=== PATIENT | female | born 1960 | race Caucasian/White ===

== ENCOUNTER 2024-09-04 10:49 | Emergency (ER) | payer BC, SELFPAY ==
--- OUTSIDE RECORDS SUMMARY | 2024-09-04 10:51 | XMS_ITS | Clinical Summary ---
Author Organization [email or web address] [facility] [employer] [facility] Address [place], [place] [address] Care Team Providers Care Set Up Operator Name Role Phone Héctor Mason MD Unavailable [phone] Hailey Mallory DO Primary Care Provider [phone] Allergies No known active allergies Medications cholecalciferol (VITAMIN D-3) 2,000 unit capsule Take 2 capsules by mouth once daily. 0 06/24/20 14 Active aspirin chewable 81 mg chewable tablet Take 1 tablet by mouth once daily with a meal. 0 04/26/20 20 Active albuterol HFA (PRO-AIR; VENTOLIN; PROVENTIL) 90 mcg/actuation inhalerIndicatio ns:Mild intermittent asthma without complication INHALE 1-2 PUFFS BY MOUTH EVERY 4 HOURS IF NEEDED. 18 Each 3 05/18/20 22 Active fexofenadine HCl (JORDAN ORAL) Take by mouth. Active fluticasone propion-salmeter oL (ADVAIR) 100-50 mcg/dose diskus inhalerIndicatio ns:Mild intermittent asthma without complication Inhale 1 Puff by mouth two times daily. 60 Each 3 12/05/19 24 Active sertraline (ZOLOFT) 100 mg tabletIndication s:Depression, recurrent (HC) Take 1 Tablet (100 mg) by mouth once daily. 90 Tablet 3 12/10/19 24 Active SUMAtriptan (IMITREX) 50 mg tabletIndication s:Migraine without status migrainosus, not intractable, unspecified migraine type GIVE AT MINIMUM 2 HOURS APART. MAXIMUM DOSE: 200 MGPER 24 HOURS 27 Tablet 3 12/10/19 24 Active estradioL (ESTRACE) 0.01% (0.1 mg/g) vaginal creamIndications :Atrophic vaginitis 2 GRAMS DAILY X 1-2 WKS, 1 GRAM EVERY OTHER DAY X 2 WKS, THEN MAINTENANCE DOSE OF 1/2-1 GRAM 2 X WK 42.5 g 3 04/13/20 24 Active ECHINACEA ORAL Take by mouth. Active medication order composer Sid Vitamin B Stress Active medication order composer Irene Three Way capsule A ctive HAIR, SKIN AND NAILS, BIOTIN, ORAL Take by mouth. Activ e abatacept (Orencia ClickJect) subcutaneous autoinjector penIndications:R heumatoid arthritis involving multiple sites, unspecified whether rheumatoid factor present (HC) INJECT ONE CLICKJECT PEN SUBCUTANEOUSLY EVERY WEEK. REFRIGERATE. ALLOW TO WARM TO ROOM TEMPERATURE PRIOR TO ADMINISTRATION. 12 Each 1 05/16/20 24 Active folic acid 1 mg tabletIndication s:High risk medication use,Rheumatoid arthritis involving multiple sites, unspecified whether rheumatoid factor present (HC) Take 1 Tablet (1 mg) by mouth once daily. 90 Tablet 1 05/16/20 24 Active methotrexate (RHEUMATREX) 2.5 mg tabletIndication s:Rheumatoid arthritis involving multiple sites, unspecified whether rheumatoid factor present (HC) TAKE 4 TABLETS ONCE WEEKLY 48 Tablet 1 05/16/20 24 Active doxycycline 100 mg tabletIndication s:Sinusitis, unspecified chronicity, unspecified location Take 1 Tablet (100 mg) by mouth two times daily for 5 days. 10 Tablet 08/06/20 24 024 Active Problems Problem Noted Date Diagnosed Date Colon polyp 07/29/2021 Overview (07/29/2021): Colonoscopy 07/2021 2-TA, repeat in 7 years S/P ascending aortic aneurysm repair 04/21/2020 Overview (04/28/2020): CT [id number] and then annually Obstructive sleep apnea 04/15/2020 Thyroid nodule 10/22/2018 Overview (12/25/2023): FNA 09/2018 = Benign colloid nodule with cystic degeneration, no malignancy. Potential for malignancy 0-3%. Repeat FNA is increasing. Repeat US 1 year. 09/2019: stable nodule, repeat 1 year x 5 years per radiology 11/2021 nodule stable, repeat in 1 year 11/2022 stable US, plan repeat in 1 year 11/2023 stable, repeat 1 year Mixed incontinence urge and stress 08/13/2018 Cervical high risk HPV (human papillomavirus) te st positive 07/12/2016 Overview (10/25/2020): 07/12/2016 NIL/HPV+, HPV16/18 Negative 07/2017 NIL/HPV Negative 09/2020 NIL/HPV negative Plan: Routine screening Rheumatoid arthritis involvi ng multiple sites with positive rheumatoid factor 07/07/2015 RA (rheumatoid arthritis) 09/09/2014 Plantar fasciitis 05/20/2014 Asthma, mild intermittent 01/27/2014 Overview (01/27/2014): PFTs showing moderate obstruction 01/26/14 with good response to bronchodilator Deltoid bursitis 02/14/2013 Prolonged depressive reaction 03/07/2011 Vitamin D deficiency 09/08/2009 Resolved Problems Problem Noted Date Diagnosed Date Resolved Date 23-polyvalent pneumococcal p olysaccharide vaccine indication of age greater than 64 years old 07/29/2021 04/14/2022 Rectal bleeding 05/16/2011 07/07/2015 Overview (05/16/2011): Colonoscopy 04/2011 normal repeat in 10 years Unspecified hypothyroidism 09/08/2009 1 09/06/2014 Dysthymic disorder 12/22/2008 5 MAJOR DEPRESSION, RECURR, MODERATE 07/30/2007 07/07/2015 Encounters Date Type Department Care Team Description 08/29/2024 9:30 AM CYLINDER BATCHER Orders Only [facility] [address] [address] Lab, [place] [facility] 08/29/2024 Travel 08/06/2024 9:15 AM CYLINDER BATCHER Office Visit [facility] [address] [place] [address] Kenna Calixto MD Sinus Problem; Cough (coughing up phlegm) 08/06/2024 Travel from Last 3 Months Immunizations Name Administration Dates Next Due AMB INFLUENZA, IIV4 (AGE=>6M OS) MDV (Flu Clinic Only) 08/29/2019 COVID-19 vaccine (Datahero-Bio NTech 30mcg/0.3mL) 12YO+ JENNIFER-SUCROSE PF, MDV 04/14/2022 COVID-19 vaccine (Datahero-Bio NTech 30mcg/0.3mL) PF, MDV 08/12/2021,02/01/2021,01/11/2021 Influenza, IIV4 05/09/2021 Influenza,CCIIV4 PRESERV FREE 06/12/2020, 020 Td (Age >=7 Years) 05/25/2004 Td, Preservative Free (age >= 7 Years) 3 Tdap 12/16/2012 Zoster (Shingrix-RZV, recombinant) 08/29/2019, Family History Medical History Relation Name Comments Good Health Brother Arthritis Father rheumatoid Cancer-breast Mother Good Health Mother Diabetes Son Cancer-ovarian No Family History Relation Name Status Comments Brother Father Maternal Grandfather lung ca Maternal Grandmother (Age 79) ? pancreatic cancer Mother Paternal Grandfather cirrhos is Paternal Grandmother unknown , Son type 1 Social History Tobacco Use Types Packs/Day Years Used Date Smoking Tobacco: Never Passive Smoke Exposure: Past Smokeless Tobacco: Never Tobacco Cessation:Counseling Given: Not Answered Alcohol Use Standard Drinks/Week Comments Yes 0 (1 standard drink = 0.6 oz pur e alcohol) occassionally [facility] Utilities Answer Date Recorded Do you have trouble paying f or utilities (for example, heat, electricity, water, phone)? Yes 12/10/2023 PHQ-2 Answer Date Recorded PHQ-2 TOTAL SCORE 2 12/10/2023 Social Connections Answer Date Recorded Do you often feel lonely or isolated from those around you? 0 12/10/2023 Alcohol Use Answer Date Recorded How often do you have a drink containing alcohol ? 1 12/10/2023 How many drinks containing a lcohol do you have on a typical day when you are drinking? 0 12/10/2023 How often do you have five or more drinks on one occasion? 0 12/10/2023 Financial Resource Strain Answer Date R ecorded Difficulty of Paying Living Expenses 3 12/10/2023 Difficulty of Paying Living Expenses Not on file 12/10/2023 Food Insecurity Answer Date Recorded Do you worry your food will run out before you are able to buy more? 1 12/10/2023 Transportation Needs Answer Date Record ed Does lack of transportation keep you from medica l appointments? 1 12/10/2023 Does lack of transportation keep you from work, meetings or getting things that you need? 1 12/10/2023 Housing Stability Answer Date Recorded What is your housing situation today? 1 12/10/2023 Comments No Sex and Gender Information Value Date Recorded Sex Assigned at Not on file Legal Sex Female 6:20 AM CYLINDER BATCHER Gender Identity Not on file Sexual Orientation Not on file Occupation Industry Job Start Date Job End Date [employer] Not on file Not on file Not on file Not on file Not on file Not on file Not on file Obstetrics History Para Term AB IAB SAB Ectopic Multiple Livin g Live Births 2 2 2 0 0 0 0 0 0 2 2 Date Outcome GA Total Labor Labor/2nd/3rd Weight Sex Type Anes PTL Yane A1 A5 Name Clin Term Vag Living Term Vag Living Last Filed Vital Signs Vital Sign Reading Time Taken Comments Blood Pressure 132/76 08/06/2024 9:24 AM CYLINDER BATCHER Pulse 78 08/06/2024 9:24 AM CYLINDER BATCHER Temperature 36.7 C (98.1 F) 10/19/2023 8:15 AM CYLINDER BATCHER Respiratory Rate 16 05/16/2024 12:31 PM CDT Oxygen Saturation 95% 08/06/2024 9:24 AM CYLINDER BATCHER Inhaled Oxygen Concentration - - Weight 95.7 kg (211 lb) 08/06/2024 9:24 AM CYLINDER BATCHER Height 154.9 cm (5' 1) 12/10/2023 2:37 PM CDT Body Mass Index 39.87 12/10/2023 2:37 PM CDT Plan of Treatment Upcoming Encounters Date Type Department Care Team (Late st Contact Info) Description 01/13/2025 11:00 AM CDT Office Visit [facility] [address] [place] [address] Héctor Mason MD [address] [place] [address] Health Maintenance Due Date Last Done Comments Pneumococcal series for age 50+ (1 of 1 - PCV) 2012 RSV vaccine for adults or (1 - Risk 60-74 years 1-dose series) 2022 COVID-19 vaccine series ( season) 2024 04/14/2022, 08/12/2021, 02/01/2021, Additional history exists Influenza for age 50-64 04/27/2024 05/09/20 21, 06/12/2020, 08/29/2019, Additional history exists BMI (ht and wt on same day) for age 18+ 12/09/2024 12/10/2023, 10/19/2023, 12/05/2022, Additional history exists Depression screening for age 12+ 12/09/2024 12/10/2023, 12/05/2022, 08/29/2022, Additional history exists Mammogram for age 45-75 12/09/2024 12/10/19 24, 12/05/2022, 10/24/2021, Additional history exists Pap test for age 21-65 09/27/2025 , 09/27/2020, 08/08/2017, Additional history exists Colonoscopy through age 75 07/26/202807/26, 07/26/2021, 07/26/2021, Additional history exists Lipids for age 45-75 01/09/2029 01/10/2024, 12/26/2022, 09/27/2020, Additional history exists Tetanus booster 12/05/2032 12/05/2022, 11/26, 05/25/2004 Tdap Completed 12/16/2012 Hepatitis C screening for ag e 18-79 Completed 07/01/2014 Zoster (shingles) series for age 50+ Completed 08/29/2019, 06/26/2019 HIV for age 15-65 Completed 03/01/2023 Medical Devices Implanted Type Area Membership Secretary Device Identifier Shelf Expiration Date Model / Serial / Lot Graft Vasc [id number] Vascutek Gelweave [facility] - [id number] Implanted:Qty: 1 on 04/21/2020 by Marko Cornell MD at [facility] N/A: Aorta Touchbase 08/26/2022 [id number] / [id number] / [id number] Description:Ascending aorta graft. Vascutek Terumo Gelweave Straight Graft. Size: 28 mm x 30 cm. Ref: [id number]. Lot: [id number]. SN: [id number]. Use by date: 08-26-2022. Implanted by Dr. Marko Cornell on 04-21-2020. Tissue Pericardium 6x8cm Photofix Bovine - [id number] Implanted:Qty: 1 on 04/21/2020 by Marko Cornell MD at [facility] N/A: Aorta [employer] 2021 PFP [id number] / / [id number] Procedures Procedure Name Priority Date/Time Associated Diagnosis Comments CBC W PLT NO DIFF Routine 08/29/2024 9:4 3 AM CYLINDER BATCHER High risk medication use COMP METABOLIC PANEL Routine 08/29/2024 9:43 AM CYLINDER BATCHER High risk medication use LIPID PANEL W REFLEX MEASURED LDL Routine 01/10/2024 1:40 PM CDT Lipid screening XR MAMMO DAVID BILAT SCREEN Routine 12/10/2023 11:49 AM CDT Visit for screening mammogram LC HIV-1/O/2, 4TH GENERATION Routine 03/01/2023 8:47 AM CDT Screening for HIV (human immunodeficiency virus) COLONOSCOPY SCREENING Routine 07/26/2021 8:48 AM CYLINDER BATCHER Screening for colon cancer SCRATCH FINISHER THIN PREP PAP SCREEN IMAGED Routine 09/27/2020 1:55 PM CYLINDER BATCHER Pap smear for cervical cancer screening ACUTE HEPATITIS PANEL Routine 07/01/2014 9:58 AM CYLINDER BATCHER Elevated liver enzymes from Last 3 Months or Most Recently Relevant to Health Maintenance Results * CBC W PLT NO DIFF (08/29/2024 9:43 AM CYLINDER BATCHER) Pathologist [facility] WHITE BLOOD CELL COUNT 6.8 3.8 - 10.8 Thousand/u L [facility] RED BLOOD CELL COUNT 4.21 3.80 - 5.10 Million/uL [facility] HEMOGLOBIN 12.7 11.7 - 15.5 g/dL [facility] HEMATOCRIT 39.0 35.0 - 45.0 % [facility] MCV 92.6 80.0 - 100.0 fL [facility] MCH 30.2 27.0 - 33.0 pg [facility] MCHC 32.6 32.0 - 36.0 g/dL [facility] Comment: For adults, a slight decrease in the calculated MCHC value (in the range of 30 to 32 g/dL) is most likely not clinically significant; however, it should be interpreted with caution in correlation with other red cell parameters and the patient's clinical condition. RDW 13.5 11.0 - 15.0 % [facility] PLATELET COUNT 320 140 - 400 Thousand/u L [facility] MPV 9.2 7.5 - 12.5 fL [facility] Blood BLOOD SPECIMEN / Unknown 08/29/2024 9:43 AM CYLINDER BATCHER 08/29/2024 9:43 AM CYLINDER BATCHER us Héctor Mason MD HEMATOLOGY Final Resul t [facility] [address] [place] [address], [facility] [address] [place] [address] * COMP METABOLIC PANEL (08/29/2024 9:43 AM CYLINDER BATCHER) [facility] GLUCOSE 92 65 - 99 mg/dL [facility] Comment: Fasting reference interval UREA NITROGEN (BUN) 12 7 - 25 mg/dL [facility] CREATININE 0.80 0.50 - 1.05 mg/dL [facility] EGFR 84 > OR = 60 mL/min/1. 73m2 [facility] BUN/CREATININE RATIO SEE NOTE: 6 - 22 (calc) [facility] Comment: Not Reported: BUN and Creatinine are within reference range. SODIUM 142 135 - 146 mmol/L [facility] POTASSIUM 4.5 3.5 - 5.3 mmol/L [facility] CHLORIDE 108 98 - 110 mmol/L [facility] CARBON DIOXIDE 27 20 - 32 mmol/L [facility] CALCIUM 9.4 8.6 - 10.4 mg/dL [facility] PROTEIN, TOTAL 6.5 6.1 - 8.1 g/dL [facility] ALBUMIN 4.2 3.6 - 5.1 g/dL [facility] GLOBULIN 2.3 1.9 - 3.7 g/dL (calc) [facility] ALBUMIN/GLOBULIN RATIO 1.8 1.0 - 2.5 (calc) [facility] BILIRUBIN, TOTAL 0.5 0.2 - 1.2 mg/dL [facility] ALKALINE PHOSPHATASE 81 37 - 153 U/L [facility] AST 21 10 - 35 U/L [facility] ALT 25 6 - 29 U/L [facility] Blood BLOOD SPECIMEN / Unknown 08/29/2024 9:43 AM CYLINDER BATCHER 08/29/2024 9:43 AM CYLINDER BATCHER us Héctor Mason MD CHEMISTRY Final Resul t [employer] [facility] [address] [place] [address], [place] [phone] [facility] [address] [place] [address] * (ABNORMAL) LIPID PANEL W REFLEX MEASURED LDL (01/10/2024 1:40 PM CDT) CHOLESTEROL,TOTAL 214(H) 100 - 199 mg/dL 01/10/2024 3:[address] [facility] Comment: Cholesterol, Total Reference Ranges Desirable <200 mg/dL Borderline 200-239 mg/dL High >=240 mg/dL TRIGLYCERIDES 138 <150 mg/dL 01/10/2024 3:[address] [facility] HDL CHOLESTEROL 64 >40 mg/dL 3:[address] [facility] NON-HDL CHOLESTEROL 150(H) <145 mg/dl 01/10/2024 3:[address] [facility] CHOL/HDL RATIO 3.34 <4.50 01/10/2024 3:[address] [facility] LDL CHOLESTEROL 122 <=130 mg/dL 01/10/2024 3:[address] [facility] VLDL CHOLESTEROL 28 <=30 mg/dL 01/10/2024 3:[address] [facility] PROVIDER ORDERED STATUS RANDOM 01/10/2024 3:[address] [facility] Blood BLOOD SPECIMEN / Unknown Venipuncture / Unknown 01/10/2024 1:40 PM CDT 01/10/2024 1:42 PM CDT us Hailey Mallory DO CHEMISTRY Final Resu lt [facility] SENDOUT INTERNAL ZIP [id number] [place], [place] [id number] * XR MAMMO DAVID BILAT SCREEN (12/10/2023 11:49 AM CDT) Anatomical Region Laterality Modality BREASTS, Breast Left, Breast Right Bilateral Mammography Impressions 12/10/2023 1:55 PM CDT There is no radiographic evidence for malignancy. Recommend annual mammograms. MAMMOGRAM ASSESSMENT: ACR 1 Negative PATIENTS: You will also receive a letter with your examination results in an easy to read format. If you have questions about your results, please contact your referring provider. Narrative 12/10/2023 1:55 PM CDT For Patients: As a result of the 21st Century Cures Act, medical imaging exams and procedure reports are released immediately into your electronic medical record. You may view this report before your referring provider. If you have questions, please contact your health care provider. XR MAMMO DAVID BILAT SCREEN [[id number]] CLINICAL HISTORY: This is an asymptomatic 62 y.o. patient. INDICATION FOR EXAM: Mammogram Screening. TECHNIQUE: CC & MLO views were obtained. This study was evaluated with the assistance of Computer-Aided Detection. Breast Tomosynthesis was used in interpretation. COMPARISON FILM: Yes 12/05/22 [facility] 10/24/21 [facility] FINDINGS: The breasts have scattered areas of fibroglandular density. There are no dominant masses, suspicious micro calcifications or areas of architectural distortion. us Hailey Mallory DO MAMMO Final Resu lt * LC HIV-1/O/2, 4TH GENERATION (03/01/2023 8:47 AM CDT) HIV Scr 4th Gen Non Reactive Non Reactive 03/04/2023 12:07 PM CDT [facility] Comment: HIV Negative HIV-1/HIV-2 antibodies and HIV-1 p24 antigen were NOT detected. There is no laboratory evidence of HIV infection. Blood BLOOD SPECIMEN / Unknown Venipuncture / Unknown 03/01/2023 8:47 AM CDT 03/01/2023 8:48 AM CDT Narrative [facility] - 03/04/2023 12:07 PM CDT Performed at: [address] [place] [id number] Wrap Checker: Zia Mathur MD, Phone: [phone] us Héctor Mason MD LABORATORY Final Resul t [facility] [place] [address], * COLONOSCOPY (07/26/2021 7:55 AM CYLINDER BATCHER) 07/26/2021 7:55 AM CYLINDER BATCHER Narrative Transcriptions Mark Anthony Nguyen MD - 07/26/2021 9:47 AM CST Patient Name: Buffy Cortez Procedure Date: 07/26/2021 Gender: Female Date of : 1960 Admit Type: Outpatient Procedure: Colonoscopy Proceduralist: Mark Anthony Nguyen MD , Val Hernandez RN(Nurse) Referring MD: Hailey Mallory Indications/Pre-Op Diagnosis: Screening for colorectal malignant neoplasm, Last colonoscopy: April 2011 Medications: Fentanyl 100 micrograms IV, Midazolam 2 mgIV, The level of sedation administered wasmoderate Procedure Description: The patient had risks, benefits and alternatives explained to andgave informed consent. The patient had a stable cardiopulmonary status and judged an adequate candidate for conscious sedation. The [id number] was passed through the anus and advanced tothe cecum, identified by appendiceal orifice and ileocecal valve. The colonoscopy was performed without difficulty. The patient toleratedthe procedure well. The quality of the bowel preparation was good. The ileocecal valve, appendiceal orifice, and rectum were photographed. Complications: No immediate complications. Estimated Blood Loss & Specimen: Estimated blood loss: none. Specimen collected - Yes and sent to Laboratory Findings: The perianal and digital rectal examinations were normal. Two semi-pedunculated polyps were found in the rectum. The polypswere 4 to 5 mm in size. These polyps were removed with a hot snare.Resection and retrieval were complete. The exam was otherwise without abnormality. Impressions/Post-Op Diagnosis: - Two 4 to 5 mm polyps in the rectum, removed with a hot snare.Resected and retrieved. - The examination was otherwise normal. Recommendation: - Patient has a contact number available for emergencies. The signsand symptoms of potential delayed complications were discussed with the patient. Return to normal activities tomorrow. Written discharge instructions were provided to the patient. - Resume previous diet. - Continue present medications. - Await pathology results. - Repeat colonoscopy is recommended. The colonoscopy date will be determined after pathology results from today's exam become available for review. Moderate Sedation: Moderate (conscious) sedation was administered by the endoscopy nurse and supervised by the endoscopist. The following parameters were monitored: oxygen saturation, heart rate, respiratory rate, blood pressure, adequacy of pulmonary ventilation and reponse to care. Please refer to the patient's medical record flowsheets and nursing notes for moderate sedation details. Total physician intraservice time was 16 minutes. Mark Anthony Nguyen MD 07/26/2021 9:47:26 AM This report has been signed electronically. Note Initiated On: 07/26/2021 7:55 AM Procedure Code(s): --- Professional --- 38197, Colonoscopy, flexible; with removalof tumor(s), polyp(s), or other lesion(s) bysnare technique Diagnosis Code(s): --- Professional --- Z12.11, Encounter for screening formalignant neoplasm of colon K62.1, Rectal polyp CPT copyright 2020 [employer]. All rights reserved. The codes documented in this report are preliminary and upon torch straightener reviewmay be revised to meet current compliance requirements. Scope In: 9:25:10 AM Scope Withdrawal Time 0 hours 9 minutes 20 seconds Scope Out: 9:40:09 AM us Mark Anthony Nguyen MD PROCEDURE ORD Final Res ult * SCRATCH FINISHER THIN PREP PAP SCREEN IMAGED (09/27/2020 1:55 PM CYLINDER BATCHER) Case Report Gynecologic Cytology Report Case: [id number] Authorizing Provider: Hailey Mallory DO Collected: 09/27/2020 1355 Ordering Location: [facility] Received: 09/27/2020 1421 Clinic First Screen: Radha Bryant Specimen: SCRATCH FINISHER ThinPrep Vial Screening, Cervical 10/05/2020 10:49 AM CYLINDER BATCHER [facility] ENTRAL LABORATORY INTERPRETATION/ RESULT NEGATIVE FOR INTRAEPITHELIAL LESION OR MALIGNANCY (NIL) (none) 10/05/2020 10:49 AM CYLINDER BATCHER [facility] ENTRAL LABORATORY IMEN ADEQUACY Satisfactory for evaluation Endocervical cells cannot be evaluated due to severe atrophy 10/05/2020 10:49 AM [facility]ER BATCHER [facility] HPV REQUEST HPV and PAP 10/05/2020 10:49 AM CYLINDER BATCHER [facility] Date of LMP n/a 10/05/2020 10:49 AM CYLINDER BATCHER [facility] Last Pap Date 08/08/17 10/05/2020 10:49 AM CYLINDER BATCHER [facility] Last Pap Result NIL 10:49 AM CYLINDER BATCHER [facility] Abnormal Pap or Hurst Bx in last 5 years No 10/05/2020 10:49 AM CYLINDER BATCHER [facility] ENTRAL LABORATORY Menstrual Status Postmenopausal 10/05/2020 10:49 AM CYLINDER BATCHER [facility] ENTRAL LABORATORY Hurst Bx Done Today No 10/05/2020 10:49 AM CYLINDER BATCHER [facility] ENTRAL LABORATORY Additional Information None given 10/05/2020 10:49 AM CYLINDER BATCHER [facility] ENTRAL LABORATORY Comment: Cytology is screened at [facility] - [address], [place] [address] and [facility] - [address], [place] [address] [facility] - [address] [place] [address] Interpreted at [facility] - [address], [place] [address] Automated Review Successful 10/05/2020 10:49 AM CYLINDER BATCHER [facility] ENTRAL LABORATORY Comment:Specimen processed s uccessfully by automated elevator mechanic device, [employer] System, [employer] ANCILLARY TESTING SCRATCH FINISHER HPV Ordered, Please see separate report 10/05/2020 10:49 AM CYLINDER BATCHER [facility] [place] [facility] Note The pap test is a screening technique, not a diagnostic procedure. It is used primarily to screen for squamous cancers and precursor lesions. Published studies have shown that it is subject to both false negative and false positive results. The pap test should not be used as the sole means to diagnose or exclude pre-malignant and malignant lesions. 10/05/2020 10:49 AM CYLINDER BATCHER [facility] EN[facility] Other (Cervical) Non-Blood / Unknown 09/27/2020 1:55 PM CYLINDER BATCHER 09/27/2020 2:21 PM CYLINDER BATCHER Hailey Mallory DO PATHOLOGY/CYTOLOGY Final R esult Performing Organization Address City/[facility]/ZIP Co de Phone Number [facility] [address] * ACUTE HEPATITIS PANEL (07/01/2014 9:58 AM CYLINDER BATCHER) HEPATITIS C ANTIBODY Non-Reactive Non-Reactive 07/01/2014 5:55 PM CYLINDER BATCHER [facility] IGM ANTI HAV Non-Reactive Non-Reactive 07/01/20 14 5:55 PM CYLINDER BATCHER [facility] HBSAG Nonreactive Nonreactive 07/01/2014 5:55 PM CYLINDER BATCHER [facility] IGM ANTI HBC Non-Reactive Non-Reactive 07/01/20 14 5:55 PM CYLINDER BATCHER [facility] Blood specimen (specimen) BLOOD SPECIMEN / Unknown Venipuncture / Unknown 07/01/2014 9:58 AM CYLINDER BATCHER 07/01/2014 9:58 AM CYLINDER BATCHER Narrative [facility] - 07/01/2014 5:55 PM CYLINDER BATCHER Anti-HBc IgM not detected. Does not exclude the possibility of exposure to or infection with HBV. Hailey Mallory DO SEND OUTS Final Resu lt Performing Organization Address City/[facility]/ZIP Co de Phone Number [facility] [address] [place] [address], from Last 3 Months or Most Recently Relevant to Health Maintenance Insurance [employer] [place] [address] [address] [place] Member Subscriber Plan / Payer (Ef fective 2020-Present) Name:Buffy Cortez Member ID:[id number] Relation to Subscriber:Employee Name:[employer] Subscriber ID:[id number] Date of :1998 (Home) Address: [address] [address] Payer ID:Not on file Group ID:Not on file Type:Not on file Address: [place] [id number] [id number] M[place]NA MIRNA DIANA Advance Directives * Full Code (Latest Code Status on File) Date Activated Date Inactivated Comments 04/21/2020 9:33 AM 04/25/2020 2:58 PM Question Answer Comments Code Status Discussion: Per Existing Order Care Teams Set Up Operator Relationship Specialty Start Date End Date [place] [address] [address] PCP - General Family Practice 07/12/16 Héctor Mason MD [address] [place] [address] Rheumatology Rheumatology 06/24/14
[2024-09-04 11:02] VITALS: BP 147/62; PULSE 77; RESP 20; TEMP 36.9; O2SAT 96; BMI 39.1
--- NOTE | 2024-09-04 11:14 | CRLHL7_ITS ---
For Patients: As a result of the Cures Act, medical imaging exams and procedure reports are released immediately into your electronic medical record. You may view this report before your referring provider. If you have questions, please contact your health care provider. INDICATION: Pain, fall from ladder COMPARISON: None. TECHNIQUE: Three views right elbow FINDINGS: Acute fracture of the right radial neck. Minimal articular surface disruption. The fracture is mildly impacted, about 15 degrees. There is also a nondisplaced coronoid process fracture. Normal joint alignment. Joint spaces are normal. No focal bone lesions. Normal bone mineralization. Elbow joint effusion and soft tissue swelling. No foreign body. IMPRESSION: Mildly impacted right radial neck fracture. Nondisplaced right coronoid process fracture. Dictated by Suzanne Rodriguez MD @ 09/04/2024 12:07:08 PM (Electronically Signed)
--- NOTE | 2024-09-04 11:24 | ED.GENADULT ---
HPI - General Adult General Chief complaint: Fall/Minor Trauma Stated complaint: fall from ladder - right side/arm Time Seen by Provider: 09/04/24 10:55 Source: patient Mode of arrival: ambulatory Limitations: no limitations History of Present Illness HPI narrative: 63-year-old female presenting today with her right arm and leg pain after falling off of a ladder, approximately 1-2 feet off the ground. She was coming down a step ladder and missed the last step, falling backwards onto her right side. She felt immediate pain of the entire right arm from the wrist to shoulder and the right leg, area just behind the knee. She was able to get up unassisted her, she is able to walk although it is uncomfortable. She did not hit her head or lose consciousness. She is not on any blood thinners. She denies headache, neck pain. She has no chest or abdominal discomfort. Related Data Allergies Allergy/AdvReac Type Severity Reaction Status Date / Time No Known Drug Allergies Allergy Verified 09/04/24 11:02 Review of Systems Status of ROS: Reports: 6 or more systems reviewed and unremarkable except as noted in History and below [facility] Social History Smoking Status: Former smoker How often do you have a drink containing alcohol: monthly or less How often do you have six or more drinks on one occasion: Never AUDIT-C Alcohol total score: 1 Non-prescribed substance use: denies use Exam Narrative: Exam Narrative: Overweight, well-developed patient in no acute distress. Alert and oriented x3. Answers questions appropriately. Mood and affect are appropriate. Thoughts are goal oriented and rational. No tangential or magical thinking noted. Patient speaks in full sentences without needing to catch her breath. GCS is 15. Patient is speaking and breathing without difficulty. There is no obvious significant bleeding noted. HEENT: Normocephalic atraumatic. Pupils are equally round reactive to light. Extraocular muscles are intact. Conjunctivae are moist without any icterus noted. Moist mucous membranes. Neck is soft. Lungs: Patient takes deep breaths without any discomfort. Patient has no tenderness to palpation of the anterior, lateral posterior chest wall. Abdomen: Soft and nontender nondistended with normal bowel sounds. Extremities: Bilateral lower extremities are without edema. Normal DP and PT pulses. The there is no swelling of the extremities, no evidence of trauma. The right knee appears normal. There is no obvious joint effusion. She has tenderness with full extension over the posterolateral area. He has tenderness to palpation over the superior gastrocnemius. There is no tenderness to palpation over the medial or lateral joint line, no pain with compression of the patella. She has no pain with compression of the distal femur or the proximal tib fib. Right upper extremity has normal appearance, there is no joint swelling over the wrist, elbow or shoulder. She has full range of motion at the wrist without discomfort. No pain with pronation supination. 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 All fingers move without difficulty. Normal radial pulse. She has no tenderness to palpation at the wrist. She has some mild tenderness of the lateral epicondyle at the elbow. She has tenderness with flexion and extension at the elbow. No tenderness over the olecranon. She has no tenderness was on shoulder examination. She has full range of motion at the shoulder without discomfort at the shoulder joint. Skin: Well perfused without any obvious rashes. Back: Normal appearance. Patient has no tenderness to palpation at the cervical, thoracic or lumbar spine. Patient has full range of motion at the neck with flexion, extension, side way bending and rotation without pain. Const: Vital Signs, click to edit/add: Vital Signs - 24 hr 09/04/24 11:02 09/04/24 13:00 Temperature 98.5 F Pulse Rate [Pulse Oximeter] 77 68 Respiratory Rate 20 16 Blood Pressure [Le ft Upper Arm] 147/62 H 157/83 H Pulse Oximetry 96 97 Oxygen Delivery Me thod Room Air Room Air Course Course ED Course: We did go ahead and do x-rays of the elbow which showed radial neck and coronoid process fractures. Patient was placed in a posterior long-arm splint. One dose of [place] was given in the ED today. Vital Signs Vital signs: Initial Vital Signs Temperature 98.5 F 09/04/24 11:02 Temperature Source Temporal Artery Scan 09/04/24 11:02 Pulse Rate 77 09/04/24 11:02 Respiratory Rate 20 09/04/24 11:02 Blood Pressure 147/62 H 09/04/24 11:02 Blood Pressure Mean 90 09/04/24 11:02 Blood Pressure Position Sitting 09/04/24 11:02 Pulse Oximetry 96 09/04/24 11:02 Oxygen Delivery Method Room Air 09/04/24 11:02 Vital Signs Temperature 98.5 F 09/04/24 11:02 Pulse Rate 77 09/04/24 11:02 Respiratory Rate 20 09/04/24 11:02 Blood Pressure 147/62 H 09/04/24 11:02 Pulse Oximetry 96 09/04/24 11:02 Oxygen Delivery Method Room Air 09/04/24 11:02 Temperature 98.5 F 09/04/24 11:02 Pulse Rate 68 09/04/24 13:00 Respiratory Rate 16 09/04/24 13:00 Blood Pressure 157/83 H 09/04/24 13:00 Pulse Oximetry 97 09/04/24 13:00 Oxygen Delivery Method Room Air 09/04/24 13:00 Medications Administered Medications: Discontinued Medications Generic Name Dose Route Start Last Admin Trade Name Carlq PRN Reason Stop Dose Admin Hydrocodone Bitart/Acetaminophen 1 tab 09/04/24 12:42 09/04/24 12:59 Hydrocodone-Acetamin 5-325 Mg 1 Tab PO 09/04/24 12:43 1 tab ONCE ONE Administration Medical Decision Making MDM Narrative Medical decision making narrative: 63-year-old female status post fall with elbow fracture per above. Given her physical exam I did not feel that was necessary to do any further imaging. We discussed that certainly if she is feeling worsening pain of her knee or shoulder that she should return for re-evaluation. Otherwise she will follow-up with orthopedics regarding her elbow. Imaging Data Elbow x-ray: Attestation: I have reviewed the pertinent imaging results. Radiologist's impression: COMPARISON: None. TECHNIQUE: Three views right elbow FINDINGS: Acute fracture of the right radial neck. Minimal articular surface disruption. The fracture is mildly impacted, about 15 degrees. There is also a nondisplaced coronoid process fracture. Normal joint alignment. Joint spaces are normal. No focal bone lesions. Normal bone mineralization. Elbow joint effusion and soft tissue swelling. No foreign body. IMPRESSION: Mildly impacted right radial neck fracture. Nondisplaced right coronoid process fracture. Discharge Plan Discharge Clinical Impression: Fracture of radial neck, Fracture of coronoid process of right ulna Patient Disposition: Home, Self-Care Condition: Stable Instructions: Arm Fracture in Adults (DC) Additional Instructions: Wear splint at all times. Okay to use ibuprofen or Tylenol as needed for pain, [place] sent home to use as well as needed. Be aware that [place] contains acetaminophen (tylenol) - to make sure that you are not taking more than 3000 mg of combined Tylenol per 24 hours. [place] is a narcotic pain medication that can make you drowsy, be careful when using it and do not operate heavy machinery. You will need to follow-up with orthopedic surgery in approximately 1 week. You will be given the phone number to call, you can call that number today to set up a follow-up ER appointment or call them 1st thing in the morning. You may wake up in the morning and noticed that you have more areas of soreness, including your knee and shoulders. If these areas become more painful over the next 48-72 hours, you should return to the emergency department for re-evaluation. Four tablets of [place] sent to [facility]. Follow Up/Referrals: Hailey Mallory DO [Primary Care Provider] - Stand Alone Forms: [employer] Info Instructions
--- OUTSIDE RECORDS SUMMARY | 2024-09-04 11:47 | XMS_ITS | Clinical Summary ---
Author Organization [facility] Address [place], [place] [address] Care Team Providers Care Bone Worker Name Role Phone Héctor Mason MD Unavailable [phone] Hailey Mallory DO Primary Care Provider [phone] Allergies No known active allergies Medications cholecalciferol [...] Vitamin B Stress Active medication order composer [place] capsule A ctive HAIR, SKIN AND NAILS, [...] aortic aneurysm repair 04/21/2020 Overview (04/28/2020): CT [id number] and then annually Obstructive sleep apnea 04/15/2020 [...] Department Care Team Description 08/29/2024 9:30 AM SCHOOL BUS MONITOR Orders Only [facility] [address] [address] [place], [place] Lab 08/29/2024 Travel 08/06/2024 9:15 AM SCHOOL BUS MONITOR Office Visit [facility] [address] [place] [id number] Kenna Calixto MD Sinus Problem; Cough (coughing up phlegm) 08/06/2024 Travel from Last 3 Months Immunizations Name Administration Dates Next Due AMB INFLUENZA, IIV4 (AGE=>6M OS) MDV (Flu Clinic Only) 08/29/2019 COVID-19 vaccine (Sc[employer]Bio NTech 30mcg/0.3mL) 12YO+ JENNIFER-SUCROSE PF, MDV 04/14/2022 COVID-19 vaccine ([employer] NTech 30mcg/0.3mL) PF, MDV 08/12/2021,02/01/2021,01/11/2021 Influenza, IIV4 [...] = 0.6 oz pur e alcohol) occassionally [facility] Utilities Answer Date Recorded Do you have [...] on file Legal Sex Female 6:20 AM SCHOOL BUS MONITOR Gender Identity Not on file Sexual Orientation [...] Comments Blood Pressure 132/76 08/06/2024 9:24 AM SCHOOL BUS MONITOR Pulse 78 08/06/2024 9:24 AM SCHOOL BUS MONITOR Temperature 36.7 C (98.1 F) 10/19/2023 8:15 AM SCHOOL BUS MONITOR Respiratory Rate 16 05/16/2024 12:31 PM CDT Oxygen Saturation 95% 08/06/2024 9:24 AM SCHOOL BUS MONITOR Inhaled Oxygen Concentration - - Weight 95.7 kg (211 lb) 08/06/2024 9:24 AM SCHOOL BUS MONITOR Height 154.9 cm (5' 1) 12/10/2023 2:37 PM CDT Body Mass Index 39.87 12/10/2023 2:37 PM CDT Plan of Treatment Upcoming Encounters Date Type Department Care Team (Late st Contact Info) Description 01/13/2025 11:00 AM CDT Office Visit [facility] [address] [place] [address] Héctor Mason MD [address] [place] [address] Health Maintenance Due Date Last Done Comments [...] Completed 03/01/2023 Medical Devices Implanted Type Area Tape Deck Installer Device Identifier Shelf Expiration Date Model / Serial / Lot Graft Vasc [id number] Vascutek Gelweave [facility] - [id number] Implanted:Qty: 1 on 04/21/2020 by Marko Cornell MD at [facility] N/A: Aorta [email or web address] 08/26/2022 [id number] / [id number] / [id number] Description:Ascending aorta graft. Vascutek Terumo Gelweave Straight Graft. Size: 28 mm x 30 cm. Ref: [id number]. Lot: [id number]. SN: [id number]. Use by date: 08-26-2022. Implanted by Dr. Marko Cornell on 04-21-2020. Tissue Pericardium 6x8cm [employer] Bovine - [id number] Implanted:Qty: 1 on 04/21/2020 by Marko Cornell MD at [facility] N/A: Aorta [employer] 2021 PFP [id number]# / / [id number] Procedures Procedure Name Priority Date/Time Associated Diagnosis Comments CBC W PLT NO DIFF Routine 08/29/2024 9:4 3 AM SCHOOL BUS MONITOR High risk medication use COMP METABOLIC PANEL Routine 08/29/2024 9:43 AM SCHOOL BUS MONITOR High risk medication use LIPID PANEL W REFLEX MEASURED LDL Routine 01/10/2024 1:40 PM CDT Lipid screening XR MAMMO DAVID BILAT SCREEN Routine 12/10/2023 11:49 AM CDT Visit for screening mammogram LC HIV-1/O/2, 4TH GENERATION Routine 03/01/2023 8:47 AM CDT Screening for HIV (human immunodeficiency virus) COLONOSCOPY SCREENING Routine 07/26/2021 8:48 AM SCHOOL BUS MONITOR Screening for colon cancer SENIOR INFORMATION SYSTEMS ARCHITECT THIN PREP PAP SCREEN IMAGED Routine 09/27/2020 1:55 PM SCHOOL BUS MONITOR Pap smear for cervical cancer screening ACUTE HEPATITIS PANEL Routine 07/01/2014 9:58 AM SCHOOL BUS MONITOR Elevated liver enzymes from Last 3 Months or Most Recently Relevant to Health Maintenance Results * CBC W PLT NO DIFF (08/29/2024 9:43 AM SCHOOL BUS MONITOR) Pathologist [facility] WHITE BLOOD CELL COUNT 6.8 3.8 - 10.8 Thousand/u L [facility] RED BLOOD CELL COUNT 4.21 3.80 - 5.10 Million/uL [facility] HEMOGLOBIN 12.7 11.7 - 15.5 g/dL [facility] HEMATOCRIT 39.0 35.0 - 45.0 % [facility] MCV 92.6 80.0 - 100.0 fL [facility] MCH 30.2 27.0 - 33.0 pg [facility] MCHC 32.6 32.0 - 36.0 g/dL [facility] Comment: For adults, a slight decrease in the calculated MCHC value (in the range of 30 to 32 g/dL) is most likely not clinically significant; however, it should be interpreted with caution in correlation with other red cell parameters and the patient's clinical condition. RDW 13.5 11.0 - 15.0 % [facility] PLATELET COUNT 320 140 - 400 Thousand/u L [facility] MPV 9.2 7.5 - 12.5 fL [facility] Blood BLOOD SPECIMEN / Unknown 08/29/2024 9:43 AM SCHOOL BUS MONITOR 08/29/2024 9:43 AM SCHOOL BUS MONITOR us Héctor Mason MD HEMATOLOGY Final Resul t [employer] [facility] [address] [place] [address], [facility] [address] [place] [address] * COMP METABOLIC PANEL (08/29/2024 9:43 AM SCHOOL BUS MONITOR) [facility] GLUCOSE 92 65 - 99 mg/dL [facility] Comment: Fasting reference interval UREA NITROGEN (BUN) 12 7 - 25 mg/dL [facility] CREATININE 0.80 0.50 - 1.05 mg/dL [facility] EGFR 84 > OR = [...] BLOOD SPECIMEN / Unknown 08/29/2024 9:43 AM SCHOOL BUS MONITOR 08/29/2024 9:43 AM SCHOOL BUS MONITOR us Héctor Mason MD CHEMISTRY Final Resul t [employer] [facility] [address] [place] [address], [place] [phone] [facility] [address] [place] [address] * (ABNORMAL) LIPID PANEL W REFLEX MEASURED [...] [facility] SENDOUT INTERNAL ZIP [address] [place], [place] [id number] * XR MAMMO DAVID BILAT SCREEN (12/10/2023 [...] care provider. XR MAMMO DAVID BILAT SCREEN [[id number]] CLINICAL HISTORY: This is an asymptomatic 62 [...] Reactive Non Reactive 03/04/2023 12:07 PM CDT [facility] ([facility]) Comment: HIV Negative HIV-1/HIV-2 antibodies and HIV-1 p24 antigen were NOT detected. There is no laboratory evidence of HIV infection. Blood BLOOD SPECIMEN / Unknown Venipuncture / Unknown 03/01/2023 8:47 AM CDT 03/01/2023 8:48 AM CDT Narrative [facility] ([facility]) - 03/04/2023 12:07 PM CDT Performed at: [address] [place] [id number] [employer] Electrician: Zia Mathur MD, Phone: [phone] us Héctor Mason MD LABORATORY Final Resul t [facility] ([facility]) [facility] [place] [address], * COLONOSCOPY (07/26/2021 7:55 AM SCHOOL BUS MONITOR) 07/26/2021 7:55 AM SCHOOL BUS MONITOR Narrative Transcriptions Mark Anthony Nguyen MD - [...] adequate candidate for conscious sedation. The [id number] was passed through the anus and advanced [...] 7:55 AM Procedure Code(s): --- Professional --- 80934, Colonoscopy, flexible; with removalof tumor(s), polyp(s), or other lesion(s) bysnare technique Diagnosis Code(s): --- Professional --- Z12.11, Encounter for screening formalignant neoplasm of colon K62.1, Rectal polyp CPT copyright 2020 [employer]. All rights reserved. The codes documented in this report are preliminary and upon carbon sequestration plant operator reviewmay be revised to meet current compliance requirements. Scope In: 9:25:10 AM Scope Withdrawal Time 0 hours 9 minutes 20 seconds Scope Out: 9:40:09 AM us Mark Anthony Nguyen MD PROCEDURE ORD Final Res ult * SENIOR INFORMATION SYSTEMS ARCHITECT THIN PREP PAP SCREEN IMAGED (09/27/2020 1:55 PM SCHOOL BUS MONITOR) Case Report Gynecologic Cytology Report Case: [id number] Authorizing Provider: Hailey Mallory DO Collected: 09/27/2020 1355 Ordering Location: [facility] Received: 09/27/2020 1421 Clinic First Screen: Radha Bryant Specimen: SENIOR INFORMATION SYSTEMS ARCHITECT ThinPrep Vial Screening, Cervical 10/05/2020 10:49 AM SCHOOL BUS MONITOR [facility] ENTRAL LABORATORY INTERPRETATION/ RESULT NEGATIVE FOR INTRAEPITHELIAL LESION OR MALIGNANCY (NIL) (none) 10/05/2020 10:49 AM SCHOOL BUS MONITOR [facility] [employer] [facility] IMEN ADEQUACY Satisfactory for evaluation Endocervical cells cannot be evaluated due to severe atrophy 10/05/2020 10:49 AM SCHOOL BUS MONITOR [facility] HPV REQUEST HPV and PAP 10/05/2020 10:49 AM SCHOOL BUS MONITOR [facility] [facility] Date of LMP n/a 10/05/2020 10:49 AM SCHOOL BUS MONITOR [facility] [employer] [facility] Last Pap Date 08/08/17 10/05/2020 10:49 AM SCHOOL BUS MONITOR [facility] [employer] [facility] Last Pap Result NIL 10:49 AM SCHOOL BUS MONITOR [facility] [employer] [facility] Abnormal Pap or [place] Bx in last 5 years No 10/05/2020 10:49 AM SCHOOL BUS MONITOR [facility] [employer] [facility] EN[facility] LAB[facility] Menstrual Status Postmenopausal 10/05/2020 10:49 AM SCHOOL BUS MONITOR [facility] [employer] [facility] ENTRAL [facility] [place] Bx Done Today No 10/05/2020 10:49 AM SCHOOL BUS MONITOR [facility] [employer] [facility] ENTRAL [facility] Additional Information None given 10/05/2020 10:49 AM SCHOOL BUS MONITOR [facility] [employer] [facility] EN[facility] Comment: Cytology is screened at [facility] - [address], [place] [address] and [facility] - [address], [place] [address] and [facility] - [address] [place] [address] Interpreted at [facility] - [address], [place] [address] Automated Review Successful 10/05/2020 10:49 AM SCHOOL BUS MONITOR [facility] [employer] [facility] ENTR[facility] LAB[facility]AT[facility] Comment:Specimen processed s uccessfully by automated chiller hand device, ThinPrep Imaging System, [employer] ANCILLARY TESTING SENIOR INFORMATION SYSTEMS ARCHITECT HPV Ordered, Please see separate report 10/05/2020 10:49 AM SCHOOL BUS MONITOR [facility] [employer] [facility] ENTRAL LAB[facility]AT[facility] Note The pap test is [...] pre-malignant and malignant lesions. 10/05/2020 10:49 AM SCHOOL BUS MONITOR [facility]- ENTRAL LAB[facility]AT[facility] Other (Cervical) Non-Blood / Unknown 09/27/2020 1:55 PM SCHOOL BUS MONITOR 09/27/2020 2:21 PM SCHOOL BUS MONITOR Hailey Mallory DO PATHOLOGY/CYTOLOGY Final R esult Performing Organization Address City/[facility]/ZIP Co de Phone Number [facility] [address] * ACUTE HEPATITIS PANEL (07/01/2014 9:58 AM SCHOOL BUS MONITOR) HEPATITIS C ANTIBODY Non-Reactive Non-Reactive 07/01/2014 5:55 PM SCHOOL BUS MONITOR [facility] IGM ANTI HAV Non-Reactive Non-Reactive 07/01/20 14 5:55 PM SCHOOL BUS MONITOR [facility] HBSAG Nonreactive Nonreactive 07/01/2014 5:55 PM SCHOOL BUS MONITOR [facility] IGM ANTI HBC Non-Reactive Non-Reactive 07/01/20 14 5:55 PM SCHOOL BUS MONITOR [facility] Blood specimen (specimen) BLOOD SPECIMEN / Unknown Venipuncture / Unknown 07/01/2014 9:58 AM SCHOOL BUS MONITOR 07/01/2014 9:58 AM SCHOOL BUS MONITOR Narrative [facility] - 07/01/2014 5:55 PM SCHOOL BUS MONITOR Anti-HBc IgM not detected. Does not exclude the possibility of exposure to or infection with HBV. Hailey Mallory DO SEND OUTS Final Resu lt Performing Organization Address City/[facility]/ZIP Co de Phone Number [facility] [address] [place] [address], from Last 3 Months or Most Recently Relevant to Health Maintenance Insurance [employer] [place] [address] [address] MIRNA DIANA Member Subscriber Plan / Payer (Ef fective 2020-Present) Name:Buffy Cortez Member ID:[id number] Relation to Subscriber:Employee Name:[employer] Subscriber ID:[id number] Date of :1998 (Home) Address: [address] [address] Payer ID:Not on file Group ID:Not on file Type:Not on file Address: [place] [id number] [address] [id number] MIRNA DIANA MIRNA DIANA Advance Directives * Full Code (Latest Code Status on File) Date Activated Date Inactivated Comments 04/21/2020 9:33 AM 04/25/2020 2:58 PM Question Answer Comments Code Status Discussion: Per Existing Order Care Teams Bone Worker Relationship Specialty Start Date End Date [place] [address] PCP - General Family Practice 07/12/16 Héctor Mason MD [address] [place] [address] Rheumatology Rheumatology 06/24/14
[2024-09-04] MEDS: HYDROCODONE-ACETAMIN 5-325 MG 1 TAB PO (12:59)
[2024-09-04 13:00] VITALS: BP 157/83; PULSE 68; RESP 16; O2SAT 97
== END 2024-09-04 13:36 | disposition home or self-care (01) ==
PROVIDERS: Emergency Provider Family Medicine; PCP Family Medicine
DX: S52.134A Nondisplaced fracture of neck of right radius, initial encounter for closed fracture (principal); S52.044A Nondisplaced fracture of coronoid process of right ulna, initial encounter for closed fracture; W11.XXXA Fall on and from ladder, initial encounter
CPT/HCPCS: 29105; 73080; 99283; 99284; A9270

== ENCOUNTER 2024-09-17 10:00 | Day surgery (SDC) | payer BC, SELFPAY ==
[2024-09-17] VITALS (11 sets, daily range): BP systolic 91–122; BP diastolic 66–80; PULSE 56–80; RESP 16; TEMP 37; O2SAT 92–96; BMI 41.0
--- OUTSIDE RECORDS SUMMARY | 2024-09-17 10:04 | XMS_ITS | Data Portability ---
Author Organization [facility] [place], [place] (Inactive) Address [address] [place] [address] Care Team Providers Care Manager Change Name Role Phone Unavailable Primary Care Provider GORDO REYES Primary Care Provider Assessment No assessment recorded. Plan of Treatment Reminders Order Date Submit Date Provider Last Modified By Organization Details Last Modified Time Details Appointments None recorded. Lab HbA1c (hemoglobin A1c), blood 2021 [email or web address] Vm_phx_martell mckeon MD Lab, [address], [address], [place], [address], 11:14:51 rheumatoid factor, qualitative , serum 2021 [email or web address] Simone_phxtiffanie mckeon MD Lab, [address], [address], [place], [address], 11:14:50 ESR (erythrocyt e sedimentati on rate), blood 2021 [email or web address] Vm_phx_martell mckeon MD Lab, [address], [address], [place], [address], 11:14:51 C-reactive protein, quantitativ e, serum or plasma 2021 [email or web address] Nichols_phx_martell mckeon MD Lab, [address], [address], [place], [address], 2 11:14:51 ADRIENNE (antinuclea r antibodies) screen, serum 2021 [email or web address] Yana mckeon MD Lab, [address], [address], [place], [address], 2 11:14:51 CBC, reflex manual diff 2021 DBA_PATCH _[id number] [facility], [address], [address], [place], [address], 3 03:38:38 CMP, serum or plasma 2021 [facility], [address], [address], [place], [address], 2 19:33:24 TSH, serum, reflex free T4 2021 [facility], [address], [address], [place], [address], 2 15:05:26 vitamin B12, serum 2021 [facility], [address], [address], [place], [address], 3 08:18:45 Referral None recorded. Procedures None recorded. Surgeries None recorded. Imaging MAMMO, screening, digital, bilateral 2021 022 [email or web address] [facility] [place], [address], [place], [address], 14:39:36 Medication Orders promethazin e-DM 6.25 mg-15 mg/5 mL oral syrup 2021 022 [email or web address] [id number], [address] [facility], [place], [address], 14:19:23 Zithromax Z-Matt 250 mg tablet 2021 [email or web address] [id number], [address] [facility] [facility], [place], [address], 11:55:09 Zithromax Z-Matt 250 mg tablet 2021 022 [email or web address] [id number], [address] [facility], [place], [address], 11:55:09 methotrexat e sodium 2.5 mg tablet 2021 dieter [email or web address] [id number], [address] [facility] [facility], [place], [address], 20:24:29 Patient TargetsNo targets recorded. Patient Instructions Encounter Date Encounter Id Patient Instructions Last Modified By Organization Details Last Modified Time 11/04/2021 [id number] Take your medication as prescribed -Maintain a diet rich in Fiber, Fruits, and vegetables; Low in saturated fats; salt; and simple carbohydrates. -Return for worsening symptoms -Return to clinic in 2-3 weeks or sooner if needed. [email or web address] 2 Not available 11/13/2021 23:23:54 06/13/2022 [id number] Acute Sinusitis: Care Instructions [email or web address] 2 Not available 06/13/2022 15:05:11 starting a weigh t loss plan: care instructions [email or web address] 2 Not available 06/13/2022 15:05:11 learning about obesity [email or web address] 2 Not available 06/13/2022 15:05:11 Rheumatoid Arthritis (RA): Care Instructions [email or web address] 2 Not available 06/13/2022 15:05:11 Take your medication as prescribed -Maintain a diet rich in Fiber, Fruits, and vegetables; Low in saturated fats; salt; and simple carbohydrates. -Exercise 30-40 min per day, Most days of the week as tolerated moderate intensity exercise -Obtain Labs -Return for worsening symptoms -Return to clinic in 1-2 months or sooner if needed. [email or web address] 2 Not available 06/13/2022 15:07:29 06/30/2022 [id number] influenza (flu): care instructions 2 Not available 06/30/2022 12:36:19 starting a weigh t loss plan: care instructions [email or web address] 2 Not available 06/30/2022 12:36:18 learning about obesity [email or web address] 2 Not available 06/30/2022 12:36:18 Rheumatoid Arthritis (RA): Care Instructions [email or web address] 2 Not available 06/30/2022 12:36:19 Take your medication as prescribed -Return for worsening symptoms -Return to clinic in 3 months or sooner if needed. [email or web address] 2 Not available 06/30/2022 12:42:21 Reason for Referral None Reported. Results Created Date Observation Date Name Description Value Unit Range Abnormal Flag Note LastModifiedBy Organization Detail LastModifiedTime 11/05/19 22 11/04/2021 rapid SARS CoV 2 Ag, QL IA, respi rator y speci men COVID antigen negati ve Not Available _jenx_[facility] ([facility]) (Inactive) [address] [place] [address], [address], 11/04/2021 15:08:02 06/22/20 22 06/23/2022 ADRIENNE COMPR EHENS JACQUI PANEL anti-centrom ere B antibodies <0.2 ai 0.0-0. 9 Not Available martine mckeon MD Lab [address] [place] [address], [place], [address], 06/23/2022 19:33:24 06/22/20 22 06/23/2022 ADRIENNE COMPR EHENS JACQUI PANEL anti-DNA (ds) Ab qn <1 IU/mL 0-9 Negat jacqui <5 Equiv ocal 5 - 9 Posit jacqui >9 Not Available martine mckeon MD Lab [address] [place] [address] [address], [place], [address], 06/23/2022 19:33:24 06/22/20 22 06/23/2022 ADRIENNE COMPR EHENS JACQUI PANEL anti-thais-1 <0.2 ai 0.0-0. [address] [facility] [address] [place] [address], [place], [address], 06/23/2022 19:33:24 06/22/20 22 06/23/2022 ADRIENNE COMPR EHENS JACQUI PANEL antichromati n antibodies <0.2 ai 0.0-0. 9 Not Available [facility] [address] [place] [address], [place], [address], 06/23/2022 19:33:24 06/22/20 22 06/23/2022 ADRIENNE COMPR EHENS JACQUI PANEL antisclerode rma-70 antibodies 0.3 ai 0.0-0. 9 Not Available [facility] [address] [place] [address], [place], [address], 06/23/2022 19:33:24 06/22/20 22 06/23/2022 ADRIENNE COMPR EHENS JACQUI PANEL molded frames assembler antibodies 0.4 ai 0.0-0. [address] [facility] [address] [place] [address], [place], [address], 06/23/2022 19:33:24 06/22/20 22 06/23/2022 ADRIENNE COMPR EHENS JACQUI PANEL see below: BAO T Autoa ntibo dy Disea se Assoc iatio n ----- ----- ----- ----- ----- ----- ----- ----- ----- ----- ----- ----- Condi tion Annia ency ----- ----- ----- ----- - ----- ----- ----- ----- ---- ----- ---- Antin uclea r Antib wes, SLE, mixed conne ctive Direc t (ADRIENNE- D) tissu e disea ses ----- ----- ----- ----- - ----- ----- ----- ----- ---- ----- ---- dsDNA SLE 40 - 60% ----- ----- ----- ----- - ----- ----- ----- ----- ---- ----- ---- Chrom atin Drug induc ed SLE 90% SLE 48 - 97% ----- ----- ----- ----- - ----- ----- ----- ----- ---- ----- ---- SSA (Ro) SLE 25 - 35% Sjogr en's Syndr ome 40 - 70% Neona rosa Lupus 100% ----- ----- ----- ----- - ----- ----- ----- ----- ---- ----- ---- SSB (La) SLE 10% Sjogr en's Syndr ome 30% ----- ----- ----- ----- - ----- ----- ----- ----- --- ----- ---- Sm (anti -Markell h) SLE 15 - 30% ----- ----- ----- ----- - ----- ----- ----- ----- --- ----- ---- INFORMATION SERVICES MANAGER Mixed Conne ctive Tissu e Disea se 95% (U1 nRNP, SLE 30 - 50% anti- ribon ucleo prote in) Polym yosit is and/o r [place] tomyo sitis 20% ----- ----- ----- ----- - ----- ----- ----- ----- ---- ----- ---- Scl-7 0 (anti DNA Scler oderm a (diff use) 20 - 35% topoi carmina ase) Crest 13% ----- ----- ----- ----- - ----- ----- ----- ----- ---- ----- ---- Thais-1 Polym yosit is and/o r [place] tomyo sitis 20 - 40% ----- ----- ----- ----- - ----- ----- ----- ----- ---- ----- ---- Centr omere B Scler oderm a - Crest varia nt 80% Not Available _clare mckeon MD Lab [address] [place] [address], [place], [address], 06/23/2022 19:33:24 06/22/20 22 06/23/2022 ADRIENNE COMPR EHENS JACQUI PANEL sjogren's anti-ss-A <0.2 ai 0.0-0. 9 Not Available _clare mckeon MD Lab [address] [place] [address], [place], [address], 06/23/2022 19:33:24 06/22/20 22 06/23/2022 ADRIENNE COMPR EHENS JACQUI PANEL sjogren's anti-ss-B <0.2 ai 0.0-0. 9 Not Available _clare mckeon MD Lab [address] [place] [address], [place], [address], 06/23/2022 19:33:24 10/06/23/2022 ADRIENNE COMPR EHENS JACQUI PANEL morrison antibodies <0.2 ai 0.0-0. 9 Not Available Yana mckeon MD Lab [address] [place] [address], [place], [address], 06/23/2022 19:33:24 06/22/20 22 06/23/2022 C REACT JACQUI PROTE IN, QUANT CRP C-reactive protein, quant 5 mg/L 0-10 Not Available Simone_jenx tiffanie mckeon MD Lab [address] [place] [address], [place], [address], 06/23/2022 19:33:25 06/22/2006/23/2022 RHEUM ATOID ARTHR ITIS FACTO R RF RH FACTO R, RHEUM .FACT OR rheumatoid factor (rf) 17.5 IU/mL <14.0 high Not Available Vm_p hx_martell mckeon MD Lab [address] [place] [address], [place], [address], 06/23/2022 19:33:26 06/22/20 22 06/23/2022 SEDIM ENTAT ION RATE- WESTE RGREN ESR sedimentatio n rate-westerg augie 17 mm/HR 0-40 Not Available Kartik mckeon MD Lab [address] [place] [address], [place], [address], 06/23/2022 19:33:26 06/22/20 22 06/23/2022 CBC (LAVE NDER) WBC 8.5 x10e3 /uL 3.9 - 10.0 Not Available Ernestophxtiffanie mckeon MD Lab [address] [place] [address], [place], [address], 06/23/2022 19:33:27 06/22/20 22 06/23/2022 CBC (LAVE NDER) RBC 4.35 x10e6 /uL 3.93 - 6.08 Not Available Yana mckeon MD Lab [address] [place] [address], [place], [address], 06/23/2022 19:33:27 06/22/20 22 06/23/2022 CBC (LAVE NDER) hemoglobin 12.6 g/dL 11.2 - 17.5 Not Available Vm_phxtiffanie mckeon MD Lab [address] [place] [address], [place], [address], 06/23/2022 19:33:27 06/22/2006/23/2022 CBC (LAVE NDER) hematocrit 40.4 % 34.2 - 51.4 Not Available Simone_phx_martell mckeon MD Lab [address] [place] [address], [place], [address], 06/23/2022 19:33:27 06/22/20 22 06/23/2022 CBC (LAVE NDER) MCV 93 fL 79 - 100 Not Available Yana mckeon MD Lab [address] [place] [address], [place], [address], 06/23/2022 19:33:27 06/22/20 22 06/23/2022 CBC (LAVE NDER) MCH 29.0 pg 25.6 - 32.3 Not Available Yana mckeon MD Lab [address] [place] [address], [place], [address], 06/23/2022 19:33:27 06/22/20 22 06/23/2022 CBC (LAVE NDER) MCHC 31.2 % 32.2 - 36.5 low Not Available Sandraxtiffanie mckeon MD Lab [address] [place] [address], [place], [address], 06/23/2022 19:33:27 06/22/20 22 06/23/2022 CBC (LAVE NDER) RDW 14.5 fL 11.6 - 14.4 high Not Available Vm_phx_martell mckeon MD Lab [address] [place] [address], [place], [address], 06/23/2022 19:33:27 06/22/2006/23/2022 CBC (LAVE NDER) segmented neutrophils % 51.9 % 34.0 - 71.1 Not Available Simone_clare mckeon MD Lab [address] [place] [address], [place], [address], 06/23/2022 19:33:27 06/22/20 22 06/23/2022 CBC (LAVE NDER) lymphocytes % 33.8 % 19.3 - 53.1 Not Available Yana mckeon MD Lab [address] [place] [address] [address], [place], [address], 06/23/2022 19:33:27 06/22/20 22 06/23/2022 CBC (LAVE NDER) monocytes % 7.2 % 4.7 - 12.5 Not Available Yana mckeon MD Lab [address] [place] [address], [place], [address], 06/23/2022 19:33:27 06/22/20 22 06/23/2022 CBC (LAVE NDER) eosinophils % 6.2 % 0.7 - 7.0 Not Available Yana mckeon MD Lab [address] [place] [address], [place], [address], 06/23/2022 19:33:27 06/22/20 22 06/23/2022 CBC (LAVE NDER) basophils % 0.9 % 0.1 - 1.2 Not Available Yana mckeon MD Lab [address] [place] [address], [place], [address], 06/23/2022 19:33:27 06/22/20 22 06/23/2022 CBC (LAVE NDER) segmented neutrophils # 4.40 x10e3 /uL 1.56 - 6.13 Not Available Vm_phx_martell e Lab [address] [place] [address] [address], [place], [address], 06/23/2022 19:33:27 06/22/20 22 06/23/2022 CBC (LAVE NDER) lymphocytes # 2.87 x10e3 /uL 1.18 - 3.74 Not Available Vm_phx_martell e Lab [address] [place] [address], [place], [address], 06/23/2022 19:33:27 06/22/2006/23/2022 CBC (LAVE NDER) monocytes # 0.61 x10e3 /uL 0.24 - 0.86 Not Available Vm_phx_martell e Lab [address] [place] [address], [place], [address], 06/23/2022 19:33:27 06/22/20 22 06/23/2022 CBC (LAVE NDER) eosinophils # 0.53 x10e3 /uL 0.05 - 0.54 Not Available Vm_phx_martell e Lab [address] [place] [address] [address], [place], [address], 06/23/2022 19:33:27 06/22/20 22 06/23/2022 CBC (LAVE NDER) basophils # 0.08 x10e3 /uL 0.01 - 0.08 Not Available Vm_phx_martell mckeon Lab [address] [place] [address], [place], [address], 06/23/2022 19:33:27 06/22/2006/23/2022 CBC (LAVE NDER) platelets 449 x10e3 /uL 140 - 420 high Not Available Vm_phx_martell e Lab [address] [place] [address], [place], [address], 06/23/2022 19:33:27 06/22/20 22 06/23/2022 HGBA1 C W/EAG (LAVE NDER) HGBA1C w/EAG 5.7 % 4.5 - 5.6 high Not Available Yana mckeon MD Lab [address] [place] [address], [place], [address], 06/23/2022 19:33:28 06/22/20 22 06/23/2022 HGBA1 C W/EAG (LAVE NDER) average blood glucose(calc ulated) 117 mg/dL Accor ding to ADA guide lines , hemog lobin A1C <7.0% repre sents optim al contr neptali non-p regna nt diabe tic patie nts. Diffe rent metri cs may apply to speci fic patie nt popul ation s. Stand ards of Medic al Care in Diabe josé miguel-2 013. Diabe josé miguel Care. 2013; 36:s1 1-s66 For the purpo se of vadim ch for the prese nce of diabe josé miguel: <5.7% Consi stent with the absen ce of diabe josé miguel 5.7-6 .4% Consi stent with incre ased risk for diabe josé miguel (pred iabet es) >or 6.5% Consi stent with diabe josé miguel Diabe tic educa tion recom janie d for A1c >7% Curre ntly, no conse nsus exist s for use of hemog lobin A1C for diagn osis of diabe josé miguel for child augie. Not Available Yana mckeon MD Lab [address] [place] [address], [place], [address], 06/23/2022 19:33:28 06/22/20 22 06/23/2022 COMPR EHENS JACQUI METAB OLIC PANEL (SST) sodium 140 mmol/ L 135 - 145 Not Available Yana mckeon MD Lab [address] [place] [address], [place], [address], 06/23/2022 19:33:29 06/22/20 22 06/23/2022 COMPR EHENS JACQUI METAB OLIC PANEL (SST) potassium 4.3 mmol/ L 3.5 - 5.2 Not Available Yana mckeon MD Lab [address] [place] [address], [place], [address], 06/23/2022 19:33:29 06/22/20 22 06/23/2022 COMPR EHENS JACQUI METAB OLIC PANEL (SST) chloride 102 mmol/ L 97 - 108 Not Available Yana mckeon MD Lab [address] [place] [address], [place], [address], 06/23/2022 19:33:29 06/22/20 22 06/23/2022 COMPR EHENS JACQUI METAB OLIC PANEL (SST) carbon dioxide 29 mmol/ L 20 - 32 Not Available Yana mckeon MD Lab [address] [place] [address], [place], [address], 06/23/2022 19:33:29 06/22/20 22 06/23/2022 COMPR EHENS JACQUI METAB OLIC PANEL (SST) glucose 86 mg/dL 69 - 99 Not Available Yana mckeon MD Lab [address] [place] [address], [place], [address], 06/23/2022 19:33:29 06/22/20 22 06/23/2022 COMPR EHENS JACQUI METAB OLIC PANEL (SST) BUN 16 mg/dL 6 - 26 Not Available Марина mckeon MD Lab [address] [place] [address], [place], [address], 06/23/2022 19:33:29 06/22/20 22 06/23/2022 COMPR EHENS JACQUI METAB OLIC PANEL (SST) creatinine 0.9 mg/dL 0.5 - 1.4 Not Available Yana mckeon MD Lab [address] [place] [address], [place], [address], 06/23/2022 19:33:29 06/22/20 22 06/23/2022 COMPR EHENS JACQUI METAB OLIC PANEL (SST) eGFR 77.77 mL/mi n >60.00 Not Available Yana mckeon MD Lab [address] [address], [place], [address], 06/23/2022 19:33:29 06/22/20 22 06/23/2022 COMPR EHENS JACQUI METAB OLIC PANEL (SST) SGOT (AST) 15 U/L 12 - 40 Not Available Yana mckeon MD Lab [address] [place] [address], [place], [address], 06/23/2022 19:33:29 06/22/20 22 06/23/2022 COMPR EHENS JACQUI METAB OLIC PANEL (SST) SGPT (ALT) 15 U/L 7 - 52 Not Available Cindy mckeon MD Lab [address] [place] [address], [place], [address], 06/23/2022 19:33:29 06/22/20 22 06/23/2022 COMPR EHENS JACQUI METAB OLIC PANEL (SST) alkaline phosphatase 72 U/L 29 - 121 Not Available Yana mckeon MD Lab [address] [address], [place], [address], 06/23/2022 19:33:29 06/22/20 22 06/23/2022 COMPR EHENS JACQUI METAB OLIC PANEL (SST) total bilirubin 0.4 mg/dL 0.3 - 1.1 Not Available Yana mckeon MD Lab [address] [address], [place], [address], 06/23/2022 19:33:29 06/22/20 22 06/23/2022 COMPR EHENS JACQUI METAB OLIC PANEL (SST) calcium 9.7 mg/dL 8.6 - 10.4 Not Available Yana mckeon MD Lab [address], [place], [address], 06/23/2022 19:33:29 06/22/20 22 06/23/2022 COMPR EHENS JACQUI METAB OLIC PANEL (SST) albumin 4.2 g/dL 3.5 - 5.8 Not Available Simone_phheidi mckeon MD Lab [address] [place] [address], [place], [address], 06/23/2022 19:33:29 06/22/20 22 06/23/2022 COMPR EHENS JACQUI METAB OLIC PANEL (SST) total protein 6.7 g/dL 6.0 - 9.0 Not Available Simone_clare mckeon MD Lab [address] [place] [address], [place], [address], 06/23/2022 19:33:29 06/22/20 22 06/23/2022 SPECI MEN INTEG RITY CHECK (LIH) hemolysis 0 0 - 1 Not Available Vm_phxcristal mckeon MD Lab [address] [place] [address], [place], [address], 06/23/2022 19:33:30 06/22/20 22 06/23/2022 SPECI MEN INTEG RITY CHECK (LIH) icterus 0 0 - 1 Not Available Simone_phxallyn mckeon MD Lab [address] [place] [address], [place], [address], 06/23/2022 19:33:30 06/22/20 22 06/23/2022 SPECI MEN INTEG RITY CHECK (LIH) lipemia 0 0 - 1 Not Available Vm_phx_renetta mckeon MD Lab [address] [place] [address], [place], [address], 06/23/2022 19:33:30 06/22/20 22 06/23/2022 TSH WITH REFLE X TO FREE T4 (SST) TSH 2.0 uIU/m L 0.5 - 5.3 Not Available _clare mckeon MD Lab [address], [place], [address], 06/23/2022 19:33:30 06/22/20 22 06/23/2022 VITAM IN B12 (SST) vitamin B12 404 pg/mL 230 - 1050 Not Available Simone_clare mckeon MD Lab [address], [place], [address], 06/23/2022 19:33:31 09/26/19 23 09/27/2022 CBC WITH DIFFE RENTI AL/PL ATELE T WBC 7.8 x10e3 /uL 3.4-10 .8 Not Available [facility] ([facility]) [address] [place], [address], 09/27/2022 08:18:42 09/26/19 23 09/27/2022 CBC WITH DIFFE RENTI AL/PL ATELE T RBC 4.34 x10e6 /uL 3.77-5 .28 Not Available [facility] ([facility]) [address] [place], [address], 09/27/2022 08:18:42 09/26/19 23 09/27/2022 CBC WITH DIFFE RENTI AL/PL ATELE T hemoglobin 12.9 g/dL 11.1-1 5.9 Not Available [facility] ([facility]) [address] [place], [address], 09/27/2022 08:18:42 09/26/19 23 09/27/2022 CBC WITH DIFFE RENTI AL/PL ATELE T hematocrit 39.3 % 34.0-4 6.6 Not Available [facility] ([facility]) [address] [place], [address], 09/27/2022 08:18:42 09/26/19 23 09/27/2022 CBC WITH DIFFE RENTI AL/PL ATELE T MCV 91 fL 79-97 Not Available [facility] ([facility]) [address] [place], [address], 09/27/2022 08:18:42 09/26/19 23 09/27/2022 CBC WITH DIFFE RENTI AL/PL ATELE T MCH 29.7 pg 26.6-3 3.0 Not Available [facility] ([facility]) [address] [facility], [place], [address], 09/27/2022 08:18:42 09/26/19 23 09/27/2022 CBC WITH DIFFE RENTI AL/PL ATELE T MCHC 32.8 g/dL 31.5-3 5.7 Not Available [facility] ([facility]) [address] [place], [address], 09/27/2022 08:18:42 09/26/19 23 09/27/2022 CBC WITH DIFFE RENTI AL/PL ATELE T RDW 14.0 % 11.7-1 5.4 Not Available [facility] ([facility]) [address] [place], [address], 09/27/2022 08:18:42 09/26/19 23 09/27/2022 CBC WITH DIFFE RENTI AL/PL ATELE T platelets 326 x10e3 /uL 150-45 0 Not Available [facility] ([facility]) [address] [place], [address], 09/27/2022 08:18:42 09/26/19 23 09/27/2022 CBC WITH DIFFE RENTI AL/PL ATELE T neutrophils 52 % not estab. Not Available [facility] ([facility]) [address] [place], [address], 09/27/2022 08:18:42 09/26/19 23 09/27/2022 CBC WITH DIFFE RENTI AL/PL ATELE T lymphs 29 % not estab. Not Available [facility] ([facility]) [address] [facility], [place], [address], 09/27/2022 08:18:42 09/26/19 23 09/27/2022 CBC WITH DIFFE RENTI AL/PL ATELE T monocytes 8 % not estab. Not Available [facility] ([facility]) [address] [facility], [place], [address], 09/27/2022 08:18:42 09/26/19 23 09/27/2022 CBC WITH DIFFE RENTI AL/PL ATELE T eos 10 % not estab. Not Available [facility] ([facility]) [address] [facility], [place], [address], 09/27/2022 08:18:42 09/26/19 23 09/27/2022 CBC WITH DIFFE RENTI AL/PL ATELE T basos 1 % not estab. Not Available [facility] ([facility]) [address] [facility], [place], [address], 09/27/2022 08:18:42 09/26/19 23 09/27/2022 CBC WITH DIFFE RENTI AL/PL ATELE T immature cells BLAST HOLE DRILLER Not Available [facility] ([facility]) [address] [place], [address], 09/27/2022 08:18:42 09/26/19 23 09/27/2022 CBC WITH DIFFE RENTI AL/PL ATELE T neutrophils (absolute) 4.0 x10e3 /uL 1.4-7. 0 Not Available [facility] ([facility]) [address] [place], [address], 09/27/2022 08:18:42 09/26/19 23 09/27/2022 CBC WITH DIFFE RENTI AL/PL ATELE T lymphs (absolute) 2.3 x10e3 /uL 0.7-3. 1 Not Available [facility] ([facility]) [address] [facility], [place], [address], 09/27/2022 08:18:42 09/26/19 23 09/27/2022 CBC WITH DIFFE RENTI AL/PL ATELE T monocytes(ab solute) 0.6 x10e3 /uL 0.1-0. 9 Not Available [facility] ([facility]) [address] [facility], [place], [address], 09/27/2022 08:18:42 09/26/19 23 09/27/2022 CBC WITH DIFFE RENTI AL/PL ATELE T eos (absolute) 0.8 x10e3 /uL 0.0-0. 4 above high normal Not Available [facility] ([facility]) [address] [facility], [place], [address], 09/27/2022 08:18:42 09/26/19 23 09/27/2022 CBC WITH DIFFE RENTI AL/PL ATELE T baso (absolute) 0.1 x10e3 /uL 0.0-0. 2 Not Available [facility] ([facility]) [address] [facility], [place], [address], 09/27/2022 08:18:42 09/26/19 23 09/27/2022 CBC WITH DIFFE RENTI AL/PL ATELE T immature granulocytes 0 % not estab. Not Available [facility] ([facility]) [address] [facility], [place], [address], 09/27/2022 08:18:42 09/26/19 23 09/27/2022 CBC WITH DIFFE RENTI AL/PL ATELE T immature grans (abs) 0.0 x10e3 /uL 0.0-0. 1 Not Available [facility] ([facility]) [address] [facility], [place], [address], 09/27/2022 08:18:42 09/26/19 23 09/27/2022 CBC WITH DIFFE RENTI AL/PL ATELE T NRBC BLAST HOLE DRILLER Not Available [facility] ([facility]) [address] [facility], [place], [address], 09/27/2022 08:18:42 09/26/19 23 09/27/2022 CBC WITH DIFFE PAMELA AL/PL ALENLE T hematology comments: BLAST HOLE DRILLER Not Available [facility] ([facility]) [address] [facility], [place], [address], 09/27/2022 08:18:42 09/26/19 23 09/27/2022 COMP. METAB OLIC PANEL (14) glucose 90 mg/dL 70-99 Not Available [facility] ([facility]) [address] [facility], [place], [address], 09/27/2022 08:18:43 09/26/19 23 09/27/2022 COMP. METAB OLIC PANEL (14) BUN 14 mg/dL 6-24 Not Available [facility] ([facility]) [address] [facility], [place], [address], 09/27/2022 08:18:43 09/26/19 23 09/27/2022 COMP. METAB OLIC PANEL (14) creatinine 0.83 mg/dL 0.57-1 .00 Not Available [facility] ([facility]) [address] [facility], [place], [address], 09/27/2022 08:18:43 09/26/19 23 09/27/2022 COMP. METAB OLIC PANEL (14) eGFR 81 mL/mi n/1.7 3 >59 Not Available [facility] ([facility]) [address] [facility], [place], [address], 09/27/2022 08:18:43 09/26/19 23 09/27/2022 COMP. METAB OLIC PANEL (14) BUN/creatini ne ratio 17 9-23 Not Available [facility] ([facility]) [address] [facility], [place], [address], 09/27/2022 08:18:43 09/26/19 23 09/27/2022 COMP. METAB OLIC PANEL (14) sodium 141 mmol/ L 134-14 4 Not Available [facility] ([facility]) [address] [facility] [place], [address], 09/27/2022 08:18:43 09/26/19 23 09/27/2022 COMP. METAB OLIC PANEL (14) potassium 4.1 mmol/ L 3.5-5. 2 Not Available [facility] ([facility]) [address] [facility] [place], [address], 09/27/2022 08:18:43 09/26/19 23 09/27/2022 COMP. METAB OLIC PANEL (14) chloride 106 mmol/ L 96-106 Not Available [facility] ([facility]) [address] [facility], [place], [address], 09/27/2022 08:18:43 09/26/19 23 09/27/2022 COMP. METAB OLIC PANEL (14) carbon dioxide, total 24 mmol/ L 20-29 Not Available [facility] ([facility]) [address] [facility] [place], [address], 09/27/2022 08:18:43 09/26/19 23 09/27/2022 COMP. METAB OLIC PANEL (14) calcium 9.0 mg/dL 8.7-10 .2 Not Available [facility] ([facility]) [address] [facility] [place], [address], 09/27/2022 08:18:43 09/26/19 23 09/27/2022 COMP. METAB OLIC PANEL (14) protein, total 6.4 g/dL 6.0-8. 5 Not Available [facility] ([facility]) [address] [facility] [place], [address], 09/27/2022 08:18:43 09/26/19 23 09/27/2022 COMP. METAB OLIC PANEL (14) albumin 4.4 g/dL 3.8-4. 9 Not Available [facility] ([facility]) [address] [facility] [place], [address], 09/27/2022 08:18:43 09/26/19 23 09/27/2022 COMP. METAB OLIC PANEL (14) globulin, total 2.0 g/dL 1.5-4. 5 Not Available [facility] ([facility]) [address] [facility] [place], [address], 09/27/2022 08:18:43 09/26/19 23 09/27/2022 COMP. METAB OLIC PANEL (14) A/G ratio 2.2 1.2-2. 2 Not Available [facility] ([facility]) [address] [facility] [place], [address], 09/27/2022 08:18:43 09/26/19 23 09/27/2022 COMP. METAB OLIC PANEL (14) bilirubin, total 0.3 mg/dL 0.0-1. 2 Not Available [facility] ([facility]) [address] [facility] [place], [address], 09/27/2022 08:18:43 09/26/19 23 09/27/2022 COMP. METAB OLIC PANEL (14) alkaline phosphatase 93 IU/L 44-121 Not Available [facility] ([facility]) [address] [facility] [place], [address], 09/27/2022 08:18:43 09/26/19 23 09/27/2022 COMP. METAB OLIC PANEL (14) AST (SGOT) 22 IU/L 0-40 Not Available [facility] ([facility]) [address] [facility] [place], [address], 09/27/2022 08:18:43 09/26/19 23 09/27/2022 COMP. METAB OLIC PANEL (14) ALT (SGPT) 21 IU/L 0-32 Not Available [facility] ([facility]) [address] [facility], [place], [address], 09/27/2022 08:18:43 09/26/19 23 09/27/2022 TSH RFX ON ABNOR MAL TO FREE T4 TSH 3.460 uIU/m L 0.450- 4.500 Not Available [facility] ([facility]) [address] [facility], [place], [address], 09/27/2022 08:18:44 09/26/19 23 09/27/2022 VITAM IN B12 vitamin B12 396 pg/mL 232-12 45 Not Available [facility] ([facility]) [address] [facility], [place], [address], 09/27/2022 08:18:44 Result Notes None recorded. Problems Name Problem SNOMED Code Status Onset Date Resolution Date Notes Provider Name and Address Organization Details Recorded Time Migraine 78121033 Active 022 Gordo lara [employer] [address], [place], [address], [facility]/[place] 2 23:20:24 Type 2 diabetes mellitus 32718628 Active 022 Gordo lara, [employer] [address], [place], [address], [facility]/[place] 2 23:20:45 Chronic depression 501143677 Active 022 Gordo lara [employer] [address], [place], [address], [facility]- [place] 2 23:21:07 Insomnia 586198892 Active 022 Gordo lara [employer] [address], [place], [address], [facility]/[place] 2 23:22:00 Problem Notes None recorded. Procedures Surgical History Date Name Laterality Status Provider Name and Address Organization Details Recorded Time 2 Q BMI is too high G8417 completed Christine Parrish [facility] [place] 06/30/2022 11:54:35 2 HOLD CODE: TELE completed Jamia Carrera [facility] 06/13/2022 14:16:13 2 Q BMI is too high G8417 [facility] [place] 06/13/2022 14:18:12 2 N-Uzglaov-OY reporting statement for CMS [facility] [place] 06/13/2022 14:16:13 2 HOLD CODE: TELE completed Thea Eldridge [facility] 11/04/2021 17:07:47 2 D-Ixpsaoy-DH reporting statement for CMS completed Thea Eldridge [facility] 11/04/2021 17:07:47 2 HOLD CODE: TELE cancelled Gordo Goldberg [facility] 11/04/2021 14:59:29 2 I-Zaajagn-TI reporting statement for CMS [facility] [place] 11/04/2021 14:59:29 0 [facility] [place] 11/04/2021 17:08:41 Imaging Results None recorded. Procedure Notes None recorded. Medical Equipment None Reported. Allergies No known drug allergies Medications Name Sig Start Date Stop Date Status Note LastModified by Organization Details LastModified Time promethazin e-DM 6.25 mg-15 mg/5 mL oral syrup TAKE 5ML BY MOUTH EVERY 4 HOURS NEEDED 06/13 completed Not Available Not Available Not Available azithromyci n 250 mg tablet TAKE 2 TABLETS BY MOUTH TODAY, THEN TAKE 1 TABLET DAILY FOR 4 DAYS 06/30 completed Not Available Not Available Not Available sertraline 100 mg tablet Take 1 tablet every day by oral route. active Not Available Not Available No t Available sumatriptan 50 mg tablet active Not Available Not Available Not Available methotrexat e sodium 2.5 mg tablet TAKE 1 TABLET BY MOUTH EVERY DAY active Not Available Not Available No t Available folic acid 1 mg tablet Take one tablet by mouth once dialy active Not Available Not Available No t Available hydroxyzine HCl 25 mg tablet TAKE 1 TABLET BY MOUTH NIGHTLY AT BEDTIME NEEDED FOR ANXIETY/S LEEP 06/30 completed Not Available Not Available Not Available estradiol 0.01% (0.1 mg/gram) vaginal cream 2 GRAMS DAILY X 1-2 WKS, 1 GRAM EVERY OTHER DAY X 2 WKS, THEN MAINTENAN CE DOSE OF 1/2-1 GRAM 2 X WK active Not Available Not Available No t Available albuterol sulfate HFA 90 mcg/actuati on aerosol inhaler Inhale 2 puffs every day by inhalatio n route as needed for 17 days. active Not Available Not Available No t Available folic acid 1mg tab 11/04 completed Not Available Not Available Not Available methotrexat e 2.5 mg tab 11/04 completed Not Available Not Available Not Available Symbicort 80 mcg-4.5 mcg/actuati on HFA aerosol inhaler TAKE 2 PUFFS BY MOUTH TWICE A DAY active Not Available Not Available No t Available Nataliia Chewable Low Dose Aspirin 81 mg tablet Chew 1 tablet every day by oral route. active Not Available Not Available No t Available Orencia ClickJect 125 mg/mL subcutaneou s auto-inject or inject 125mg once weekly active Not Available Not Available No t Available Ozempic 0.25 mg or 0.5 mg (2 mg/1.5 mL) subcutaneou s pen injector 06/13 completed Not Available Not Available Not Available vitamin D3 2,000 unit-folic acid 1 mg tablet Take by oral route. active Not Available Not Available No t Available calcium 400 mg-vit D3 83.3 mcg-magnesi um 166.7 mg-zinc 16.7 mg capsule Take by oral route. 2021 active Not Available Not Available Not Avai lable Vitals Date Recorded Body height Provider Name an d Address Organization Details Last Updated DateTime 06/13/2022 154.94 cm Jamia Carrera [place] [facility] 06/13/2022 14:17:49 Date Recorded Body mass index (BMI) Body weight Provider Name and Address Organization Details Last Updated DateTime 06/13/2022 41 kg/m2 90765.54 [facility] 06/13/2022 14:17:58 Date Recorded Oxygen saturation Oxygen saturation in Arterial blood by Pulse oximetry Provider Name and Address Organization Details Last Updated DateTime 06/13/2022 95 % 95 % Jamia [facility]/[place] 06/13/2022 14:18:31 Date Recorded Pain severity - 0-10 verbal numeric rating [Score] - Reported Provider Name and Address Organization Details Last Updated DateTime 06/13/2022 8 [facility] 06/13/2022 14:18:51 Date Recorded Body height Provider Name an d Address Organization Details Last Updated DateTime 06/30/2022 154.94 cm [facility] 06/30/2022 11:52:38 Date Recorded Body mass index (BMI) Body weight Provider Name and Address Organization Details Last Updated DateTime 06/30/2022 41.4 kg/m2 41204.73 g Christine [facility] 06/30/2022 11:54:28 Date Recorded Body temperature Provider Name a nd Address Organization Details Last Updated DateTime 06/30/2022 97.2 [degF] Christine [facility] 06/30/2022 11:57:42 Date Recorded Heart rate Provider Name an d Address Organization Details Last Updated DateTime 06/30/2022 87 /min [facility] 06/30/2022 11:57:46 Date Recorded Oxygen saturation Oxygen saturation in Arterial blood by Pulse oximetry Provider Name and Address Organization Details Last Updated DateTime 06/30/2022 93 % 93 % [facility] 06/30/2022 11:57:50 Date Recorded Systolic blood pressure Diastolic blood pressure Provider Name and Address Organization Details Last Updated DateTime 06/30/2022 127 mm[Hg] 89 mm[Hg] Christine Parrish [facility] [place] 06/30/2022 11:58:05 Social History Question Answer Notes LastModified by Organizat ion Details LastModified Time Tobacco Smoking Status Never Smoker Gordo Goldberg peter [facility] [place] 11/04/2021 18:49:51 Do You Have An Advance Directive? No [email or web address] Information not available 11/04/2021 Are You Blind Or Do You Have Difficulty Seeing? No [email or web address] Information not available 11/04/2021 Are You Currently Employed? No [email or web address] Information not available 11/04/2021 Are You Deaf Or Do You Have Serious Difficulty Hearing? No [email or web address] Information not available 11/04/2021 Have You Had An Unplanned Hospital Admission In The Last Year? No [email or web address] Information not available 11/04/2021 Have You Had An Unplanned Hospital Admission In The Last 30 Days? No [email or web address] Information not available 11/04/2021 Have You Had An ER Visit Since You Were Last Seen? No [email or web address] Information not available 11/04/2021 Do You Have A Medical Power Of Mental Health Clinician? No [email or web address] Information not available 11/04/2021 What Was The Date Of Your Most Recent Tobacco Screening? 06/13/2022 [email or web address] Information not available 06/13/2022 How Many Children Do You Have? 2 [email or web address] Information not available 11/04/2021 Do You Use Your Seat Belt Or Car Seat Routinely? Yes [email or web address] Information not available 11/04/2021 Are You Sexually Active? Yes [email or web address] Information not available 11/04/2021 Do You Have Smoke And Carbon Monoxide Detectors In Your Home? Yes Information not available 11/04/2021 Are There Any Smokers In Your House? No Information not available 11/04/2021 Do You Feel Stressed (tense, Restless, Nervous, Or Anxious, Or Unable To Sleep At Night)? [id number] [email or web address] Information not available 11/04/2021 Do You Use Any Illicit Or Recreational Drugs? No [email or web address] Information not available 11/04/2021 Do You Use Sunscreen Routinely? Yes [email or web address] Information not available 11/04/2021 Has Tobacco Cessation Counseling Been Provided? No [email or web address] Information not available 11/04/2021 Do You Or Have You Ever Used Any Other Forms Of Tobacco Or Nicotine? No Information not available 11/04/2021 How Many Days In The Past Year Have You Consumed 4 Or More Drinks? 3 [email or web address] Information no t available 11/04/2021 Sex: Unknown Functional Status Question Answer Note LastModified by Organizat ion Details LastModified Time Do you have difficulty walking or climbing stairs? No Information not available 11/04/2021 Do you have transportation difficulties? No [email or web address] Information not available 11/04/2021 Are you able to walk? YESWOREST [email or web address] Information not available 11/04/2021 Are you able to care for yourself? Yes Information not available 11/04/2021 Do you have difficulty dressing or bathing? No [email or web address] Information not available 11/04/2021 Mental Status Question Answer Note LastModified by Organization D etails LastModified Time Do you have difficulty concentrating, remembering or making decisions? No [email or web address] Information no t available 11/04/2021 Family History Relationship Description Onset Age of this Age Resolved Age Notes LastModified by Organization Details LastModified Time Son Diabetes mellitus [email or web address] Not available 06/2022 17:08:36 Father Arthritis Not avai lable 11/04/2021 17:08:36 Mother Family history of malignant neoplasm [email or web address] Not available 06/2022 17:08:36 Mother Asthma [email or web address] Not availab le 11/04/2021 17:08:36 Medical History No medical history recorded. Gynecological History Statement/Question Response Abnormal Pap N If Post Menopausal, Age at Menopause 52 Sexually Active? N Post Menopausal Bleeding N Menses Monthly N STIs/STDs N HPV Vaccine N Current Control Method Menopause Hormone Replacement Therapy N Obstetrics History GPAL:G 0 P 0 0 0 0 Immunizations Vaccine Type Date Status Note Provider Name and Address Organization Details Recorded Time Influenza, recombinant, quadrivalent , PF 2 cancelled patient objection Gordo Reyes, ARSALAN [address], [place], [address], [facility]- [place] 06/30/2022 12:41:04 Past Encounters Encounter ID Performer Location Encounter Start Date Encounter Closed Date Diagnosis/Indication Diagnosis SNOMED-CT Code Diagnosis ICD10 Code Diagnosis Note [id number] Gordo Reyes [facility] ([facility]) (IN[facility] ) [address] [place] [address] 11/04/2021 17:02:59 11/05/2021 03:55:13 Depression screening 442888059 Z13.31 Depression Screening Negative Acute maxi llary sinusitis 85964251 J01.00 Patient likely has an acute bacterial sinusitis. Will treat as below. No signs of preseptal or orbital cellulitis , meningismu s, or neurologic changes concerning for intracrani al process. Instructed family to monitor patient closely and call office for any of these symptoms. Supportive care reviewed: raising HOB, humidifier use, saline nasal spray, rest, encourage PO fluids and monitor hydration status, infection control measures. Recommende d acetaminop hen/ibupro fen PRN pain, fever; reviewed appropriat e doses. Follow-up as below. Dry cough 17689040 R05.9 Reviewed symptomati c care instructio ns, the expected course of these illnesses and explained that coughing can persist for some time. Provided precaution s for signs of worsening disease and instructio ns on contacting us if symptoms worsen. Insomnia 436802753 G47.0 0 Advised good sleep habits and patterns to include: 1. Setting a goal for at least 7 to 8 hours of sleep time per day. 2. Using the bed mainly for sleep and to go to bed only when tired. If unable to fall asleep after 30 minutes, patient should get out of bed but should not engage in any activity that requires sustained mental alertness. 3. Maintainin g a regular bedtime and wake-up time even on weekends or days off of work. 4. Avoiding excessive naps during the daytime. If a nap is necessary, limit it to no more than 30minutes. 5. Minimizing environmen rosa noise, bright lights, and extremes in bedroom temperatur e. 6. Avoiding alcohol, caffeinate d beverages, and nicotine products for at least 6 hours prior to bedtime. 7. Avoiding strenuous exercise and large meals for at least 4 hours prior to bedtime. [id number] Gordo Reyes NP [facility] [place] [address] [place] [address] 06/13/2022 14:15:51 06/13/2022 21:14:23 Fatigue 53593685 R53.83 Discussed potential etiologies of fatigue. Morbid obesity 699850523 E66.01 Z68.41 Discussed weight loss opportunit ies including a sensible diet and routine activity or exercise as tolerated. Rheumatoid arthritis 698 84689 M06.9 obtain labscontin ue methotrexa te as ordered Prediabetes 936635213 R7 3.03 Acute sinusitis 51317689 J01.90 Patient likely has an acute bacterial sinusitis. Will treat as below. No signs of preseptal or orbital cellulitis , meningismu s, or neurologic changes concerning for intracrani al process. Instructed family to monitor patient closely and call office for any of these symptoms. Supportive care reviewed: raising HOB, humidifier use, saline nasal spray, rest, encourage PO fluids and monitor hydration status, infection control measures. Recommende d acetaminop hen/ibupro fen PRN pain, fever; reviewed appropriat e doses. Follow-up as below. [id number] Gordo Reyes NP [facility]) [address] [place] [address] 06/30/2022 11:52:01 06/30/2022 13:55:28 Screening for malignant neoplasm of breast 655485350 Z12.31 Administra tion of influenza vaccine 08220931 Z23 Influenza vaccine given today, all risks and benefits outlined Depression screening 171 995691 Z13.31 Depression Screening Negative Morbid obesity 541820253 E66.01 Z68.41 Discussed weight loss opportunit ies including a sensible diet and routine activity or exercise as tolerated. Rheumatoid arthritis 698 17596 M06.9 obtain labscontin ue methotrexa te as ordered Health Concerns Section Related Observation LastModified by Organization Detai ls LastModified Time None Recorded Concern Status LastModified by Organization Details LastModified Time None Recorded Advance Directives Directive N: Payers Encounter Date Sequence Insurance Name Policy Number Policy Ingram Covered Member ID Ingram Member ID Guarantor Name 11/04/2021 1 [employer] [place] Buffy Cortez [id number] Buffy Cortez 06/13/2022 1 [employer] [place] Buffy Cortez [id number] Buffy Cortez 06/30/2022 1 [employer] [place] Buffy Cortez [id number] Buffy Cortez Notes Date Note Type Note Provider Name and Address Organization Details Recorded Time 11/04/2021 text/html Acute URI/LRI SymptomsReported bypatient.Primary Presenting Problemcough;congestio n;pressure Location:lungs;chest;e ars;sinuses - maxillary Quality:cough: non-productive;congest ion: with clear mucous;drainage: clear Severity:moderate Duration:days: 4 Aggravating or Alleviating Factors:OTC meds NOT helping Associated Symptoms:nasal congestion;ear pain I confirm that I received verbal consent from the patient for the virtual visit. This telemedicine encounter was performed with video enabled for full/partial visit. The patient's blood pressure was self-reported by using a digitally automated BP cuff: {{Yes No * }}Pt is a 60 yr old female presenting via telemedicine for a sinus pressure, cough and congestion x 4 days. 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 Gordo Reyes NP [address] [facility], [place], [address], [facility] 11/13/2021 23:24:01 06/13/2022 text/html Acute URI/LRI SymptomsReported bypatient.Primary Presenting Problemcongestion;pres sure Location:lungs;chest;e ars;sinuses - maxillary Quality:congestion: with clear mucous;drainage: clear Severity:moderate Duration:days: 4 Aggravating or Alleviating Factors:OTC meds NOT helping Associated Symptoms:nasal congestion;ear pain I confirm that I received verbal consent from the patient for the virtual visit. This telemedicine encounter was performed with video enabled for full/partial visit. The patient's blood pressure was self-reported by using a digitally automated BP cuff: {{Yes No * }}Pt is a 61 yr old female presenting via telemedicine for a sinus pressure, and congestion x 4 days. She also reports low grade fevers. Recent covid test yesterday negative.Pt also has a hst of RA and states her labs were elevated at her PCP in [place]. She states she will bring in lab order as well as obtain fasting labs in the next two weeks. Gordo Reyes NP [address] [facility] [address], [place], [address], [facility]/[place] 06/13/2022 15:07:33 06/30/2022 text/html Pt is a 61 yr old female presenting to discuss her chronic conditions.She did test positive for RA. 17.5 She was previously on Methotrexate 2.5 mg daily with positive results and denies S/E.Pre diabetes 5.7 continue to work on diet and exercise. Gordo Reyes NP [address], [place], [address], [facility]/[place] 06/30/2022 12:42:26 OBGyn Episode No OBEpisode recorded.
--- OUTSIDE RECORDS SUMMARY | 2024-09-17 10:04 | XMS_ITS | Clinical Summary ---
Author Organization [facility] Address [place], [place] [address] Care Team Providers Care Weight Loss Physician Name Role Phone Héctor Mason MD Unavailable [phone] Hailey Mallory DO Primary Care Provider [phone] Allergies No known active allergies Medications cholecalciferol [...] Vitamin B Stress Active medication order composer [place] capsule A ctive HAIR, SKIN AND NAILS, [...] WEEKLY 48 Tablet 1 05/16/20 24 Active B cmplx 4/vit D3/C/folic/zinc (VITAL-D RX ORAL) Take by oral route. Active HYDROcodone-acet aminophen (5-325 mg/tablet) 09/04/19 25 Active Active Problems Problem Noted Date Diagnosed Date Colon polyp 07/29/2021 Overview (07/29/2021): Colonoscopy 07/2021 2-TA, repeat in 7 years S/P ascending aortic aneurysm repair 04/21/2020 Overview (04/28/2020): CT x8ybyrly and then annually Obstructive sleep apnea 04/15/2020 [...] Encounters Date Type Department Care Team Description 09/12/2024 11:15 AM HOGSHEAD DUMPER Office Visit [facility] [address] [place] [address] Isaak Silverio MD Preoperative Exam (OPEN REDUCTION INTERNAL FIXATION RT ELBOW/09/17/2024 /DR. SHOOK/[facility] ) 09/12/2024 Travel 09/04/2024 Orders Only [facility] Scanner 1 scan: (1-Ord) [facility], XR ELBOW RT MIN 3V, 09/04/2024 08/29/2024 9:30 AM HOGSHEAD DUMPER Orders Only [facility] [address] [place] [address] [place], [place] [facility] 08/29/2024 Travel 08/06/2024 9:15 AM HOGSHEAD DUMPER Office Visit [facility] [address] [place] [phone] Kenna Calixto MD Sinus Problem; Cough (coughing up phlegm) 08/06/2024 Travel from Last 3 Months Immunizations Name Administration Dates Next Due AMB INFLUENZA, IIV4 (AGE=>6M OS) MDV (Flu Clinic Only) 08/29/2019 COVID-19 vaccine (Pfizer-Bio NTech 30mcg/0.3mL) 12YO+ JENNIFER-SUCROSE PF, MDV 04/14/2022 COVID-19 vaccine (Pfizer-Bio NTech 30mcg/0.3mL) PF, MDV 08/12/2021,02/01/2021,01/11/2021 Influenza, IIV4 [...] = 0.6 oz pur e alcohol) occassionally PHQ-2 Answer Date Recorded PHQ-2 TOTAL SCORE [...] is your housing situation today? 1 12/10/2023 Utilities Answer Date Recorded Do you have trouble paying f or utilities (for example, heat, electricity, water, phone)? 1 12/10/2023 Comments No Sex and Gender Information Value Date Recorded Sex Assigned at Not on file Legal Sex Female 6:20 AM HOGSHEAD DUMPER Gender Identity Not on file Sexual Orientation [...] Sign Reading Time Taken Comments Blood Pressure 110/78 09/12/2024 10:55 AM HOGSHEAD DUMPER Pulse 73 09/12/2024 10:55 AM HOGSHEAD DUMPER Temperature 36.7 C (98.1 F) 09/12/2024 10:55 AM HOGSHEAD DUMPER Respiratory Rate 16 09/12/2024 10:55 AM HOGSHEAD DUMPER Oxygen Saturation 95% 09/12/2024 10:55 AM HOGSHEAD DUMPER Inhaled Oxygen Concentration - - Weight 95.3 kg (210 lb) 09/12/2024 10:55 AM HOGSHEAD DUMPER Height 154.9 cm (5' 0.98) 09/12/2024 10:55 AM Ranjith CARSON Body Mass Index 39.71 09/12/2024 10:55 AM HOGSHEAD DUMPER Plan of Treatment Upcoming Encounters Date Type Department Care Team (Late st Contact Info) Description 01/13/2025 11:00 AM CDT Office Visit [facility] [address] [place] [address] Héctor Mason MD [address] [facility] [address] [place] [address] Health Maintenance Due Date Last Done Comments Pneumococcal series for age 50+ (1 of 1 - PCV) 2012 RSV vaccine for adults or (1 - Risk 60-74 years 1-dose series) 2022 COVID-19 vaccine series ( season) 2024 04/14/2022, 08/12/2021, 02/01/2021, Additional history exists Influenza for age 50-64 04/27/2024 05/09/20 21, 06/12/2020, 08/29/2019, Additional history exists Depression screening for age 12+ 12/09/2024 12/10/2023, 12/05/2022, 08/29/2022, Additional history exists Mammogram for age 45-75 12/09/2024 12/10/19 24, 12/05/2022, 10/24/2021, Additional history exists BMI (ht and wt on same day) for age 18+ 09/12/2025 09/12/2024, 12/10/2023, 10/19/2023, Additional history exists Pap test for age [...] Completed 03/01/2023 Medical Devices Implanted Type Area Audio Visual Design Engineer Device Identifier Shelf Expiration Date Model / Serial / Lot Graft Vasc [id number] Vascutek Gelweave Stra - [id number] Implanted:Qty: 1 on 04/21/2020 by Marko Cornell MD at [facility] N/A: Aorta Exoprise 08/26/2022 [id number] / [id number] / [id number] Description:Ascending aorta graft. Vascutek Terumo Gelweave Straight Graft. Size: 28 mm x 30 cm. Ref: [id number]. Lot: [id number]. SN: [id number]. Use by date: 08-26-2022. Implanted by Dr. Marko Cornell on 04-21-2020. Tissue Pericardium 6x8cm Photofix Bovine - [id number] Implanted:Qty: 1 on 04/21/2020 by Marko Cornell MD at [facility] N/A: Aorta [employer] 2021 PFP [id number]# / / [id number] Procedures Procedure Name Priority Date/Time Associated Diagnosis Comments SCAN-RADIOLOGY REPORT 09/04/2024 12:00 AM HOGSHEAD DUMPER CBC W PLT NO DIFF Routine 08/29/2024 9:4 3 AM HOGSHEAD DUMPER High risk medication use COMP METABOLIC PANEL Routine 08/29/2024 9:43 AM HOGSHEAD DUMPER High risk medication use LIPID PANEL W REFLEX MEASURED LDL Routine 01/10/2024 1:40 PM CDT Lipid screening XR MAMMO DAVID BILAT SCREEN Routine 12/10/2023 11:49 AM CDT Visit for screening mammogram LC HIV-1/O/2, 4TH GENERATION Routine 03/01/2023 8:47 AM CDT Screening for HIV (human immunodeficiency virus) COLONOSCOPY SCREENING Routine 07/26/2021 8:48 AM HOGSHEAD DUMPER Screening for colon cancer SHUTTLE ROUTE VEHICLE OPERATOR THIN PREP PAP SCREEN IMAGED Routine 09/27/2020 1:55 PM HOGSHEAD DUMPER Pap smear for cervical cancer screening ACUTE HEPATITIS PANEL Routine 07/01/2014 9:58 AM HOGSHEAD DUMPER Elevated liver enzymes from Last 3 Months or Most Recently Relevant to Health Maintenance Results * SCAN-RADIOLOGY REPORT (09/04/2024 12:00 AM HOGSHEAD DUMPER) Anatomical Region Laterality Modality Other us Scanner OTHER Final Result * CBC W PLT NO DIFF (08/29/2024 9:43 AM HOGSHEAD DUMPER) WHITE BLOOD CELL COUNT 6.8 3.8 - 10.8 Thousand/u L [facility] RED BLOOD CELL COUNT 4.21 3.80 - 5.10 Million/uL [facility] HEMOGLOBIN 12.7 11.7 - 15.5 g/dL [facility] HEMATOCRIT 39.0 35.0 - 45.0 % [facility] MCV 92.6 80.0 - 100.0 fL [facility] MCH 30.2 27.0 - 33.0 pg [facility] MCHC 32.6 32.0 - 36.0 g/dL [facility] Comment: For adults, a slight decrease in the calculated MCHC value (in the range of 30 to 32 g/dL) is most likely not clinically significant; however, it should be interpreted with caution in correlation with other red cell parameters and the patient's clinical condition. RDW 13.5 11.0 - 15.0 % [facility] PLATELET COUNT 320 140 - 400 Thousand/u L [facility] MPV 9.2 7.5 - 12.5 fL [facility] Blood BLOOD SPECIMEN / Unknown 08/29/2024 9:43 AM HOGSHEAD DUMPER 08/29/2024 9:43 AM HOGSHEAD DUMPER us Héctor Mason MD HEMATOLOGY Final Resul t [facility] [address] [place] [address], [facility] [address] [place] [address] * COMP METABOLIC PANEL (08/29/2024 9:43 AM HOGSHEAD DUMPER) GLUCOSE 92 65 - 99 mg/dL [facility] Comment: Fasting reference interval UREA NITROGEN (BUN) 12 7 - 25 mg/dL [facility] CREATININE 0.80 0.50 - 1.05 mg/dL [facility] EGFR 84 > OR = [...] BLOOD SPECIMEN / Unknown 08/29/2024 9:43 AM HOGSHEAD DUMPER 08/29/2024 9:43 AM HOGSHEAD DUMPER Héctor Mason MD CHEMISTRY Final Resul t [facility] [address] [place] [address], [facility] [address] [place] [address] * (ABNORMAL) LIPID PANEL W REFLEX MEASURED LDL (01/10/2024 1:40 PM CDT) CHOLESTEROL,TOTAL 214(H) 100 - 199 mg/dL 01/10/2024 3:22 PM T [facility] Comment: Cholesterol, Total Reference Ranges Desirable <200 mg/dL Borderline 200-239 mg/dL High >=240 mg/dL TRIGLYCERIDES 138 <150 mg/dL 01/10/2024 3:22 PM CDT [facility] HDL CHOLESTEROL 64 >40 mg/dL 3:22 PM T [facility] NON-HDL CHOLESTEROL 150(H) <145 mg/dl 01/10/2024 3:22 PM T [facility] CHOL/HDL RATIO 3.34 <4.50 01/10/2024 3:22 PM T [facility] LDL CHOLESTEROL 122 <=130 mg/dL 01/10/2024 3:22 PM T [facility] VLDL CHOLESTEROL 28 <=30 mg/dL 01/10/2024 3:22 PM T [facility] PROVIDER ORDERED STATUS RANDOM 01/10/2024 3:22 PM CDT [facility] Blood BLOOD SPECIMEN / Unknown Venipuncture / Unknown 01/10/2024 1:40 PM CDT 01/10/2024 1:42 PM CDT Hailey Mallory DO CHEMISTRY Final Resu lt [facility] SENDOUT INTERNAL ZIP [address] [place] [id number] * XR MAMMO DAVID BILAT SCREEN (12/10/2023 [...] For Patients: As a result of the Century Cures Act, medical imaging exams and procedure reports are released immediately into your electronic medical record. You may view this report before your referring provider. If you have questions, please contact your health care provider. XR MAMMO DAVID BILAT SCREEN [[id number]] CLINICAL HISTORY: This is an asymptomatic 62 y.o. patient. INDICATION FOR EXAM: Mammogram Screening. TECHNIQUE: CC & MLO views were obtained. This study was evaluated with the assistance of Computer-Aided Detection. Breast Tomosynthesis was used in interpretation. COMPARISON FILM: Yes 12/05/22 [facility] 10/24/21 [facility] FINDINGS: The breasts have scattered areas of fibroglandular density. There are no dominant masses, suspicious micro calcifications or areas of architectural distortion. Hailey Mallory DO MAMMO Final Resu lt * LC HIV-1/O/2, 4TH GENERATION (03/01/2023 8:47 AM CDT) HIV Scr 4th Gen Non Reactive Non Reactive 03/04/2023 12:07 PM CDT [facility] Comment: HIV Negative HIV-1/HIV-2 antibodies and HIV-1 p24 antigen were NOT detected. There is no laboratory evidence of HIV infection. Blood BLOOD SPECIMEN / Unknown Venipuncture / Unknown 03/01/2023 8:47 AM CDT 03/01/2023 8:48 AM CDT Narrative [facility] - 03/04/2023 12:07 PM CDT Performed at: [facility] [address] [facility], [place], [place] [id number] Snailer: Zia Mathur MD, Phone: [phone] us Héctor Mason MD LABORATORY Final Resul t [facility] [address] [place] [address], [place] * COLONOSCOPY (07/26/2021 7:55 AM HOGSHEAD DUMPER) 07/26/2021 7:55 AM HOGSHEAD DUMPER Narrative Transcriptions Mark Anthony Nguyen MD - [...] adequate candidate for conscious sedation. The [id number]-[id number] was passed through the anus and advanced [...] 7:55 AM Procedure Code(s): --- Professional --- 39046, Colonoscopy, flexible; with removalof tumor(s), polyp(s), or other lesion(s) bysnare technique Diagnosis Code(s): --- Professional --- Z12.11, Encounter for screening formalignant neoplasm of colon K62.1, Rectal polyp CPT copyright 2020 [employer]. All rights reserved. The codes documented in this report are preliminary and upon propulsion machinery service engineer reviewmay be revised to meet current compliance requirements. Scope In: 9:25:10 AM Scope Withdrawal Time 0 hours 9 minutes 20 seconds Scope Out: 9:40:09 AM Mark Anthony Nguyen MD PROCEDURE ORD Final Res ult * SHUTTLE ROUTE VEHICLE OPERATOR THIN PREP PAP SCREEN IMAGED (09/27/2020 1:55 PM HOGSHEAD DUMPER) Case Report Gynecologic Cytology Report Case: [id number] Authorizing Provider: Hailey Mallory DO Collected: 09/27/2020 1355 Ordering Location: [facility] Received: 09/27/2020 1421 Clinic First Screen: Radha Bryant Specimen: SHUTTLE ROUTE VEHICLE OPERATOR ThinPrep Vial Screening, Cervical 10/05/2020 10:49 AM HOGSHEAD DUMPER [facility] INTERPRETATION/ RESULT NEGATIVE FOR INTRAEPITHELIAL LESION OR MALIGNANCY (NIL) (none) 10/05/2020 10:49 AM HOGSHEAD DUMPER [facility] IMEN ADEQUACY Satisfactory for evaluation Endocervical cells cannot be evaluated due to severe atrophy 10/05/2020 10:49 AM HOGSHEAD DUMPER [facility] HPV REQUEST HPV and PAP 10/05/2020 10:49 AM HOGSHEAD DUMPER [facility] Date of LMP n/a 10/05/2020 10:49 AM HOGSHEAD DUMPER [facility] Last Pap Date 08/08/17 10/05/2020 10:49 AM HOGSHEAD DUMPER [facility] Last Pap Result NIL 10:49 AM HOGSHEAD DUMPER [facility] Abnormal Pap or [place] Bx in last 5 years No 10/05/2020 10:49 AM HOGSHEAD DUMPER [facility] Menstrual Status Postmenopausal 10/05/2020 10:49 AM HOGSHEAD DUMPER [facility] [place] Bx Done Today No 10/05/2020 10:49 AM HOGSHEAD DUMPER [facility] Additional Information None given 10/05/2020 10:49 AM HOGSHEAD DUMPER [facility] Comment: Cytology is screened at [facility], [facility] Laboratory - [address], [place] [address] and [facility] - [address], [place] [address] and [facility] - [address] [place] [address] Interpreted at [facility] - [address], [place] [address] Automated Review Successful 10/05/2020 10:49 AM HOGSHEAD DUMPER [facility] Comment:Specimen processed s uccessfully by automated coach cleaner device, ThinPrep Imaging System, [employer] ANCILLARY TESTING SHUTTLE ROUTE VEHICLE OPERATOR HPV Ordered, Please see separate report 10/05/2020 10:49 AM HOGSHEAD DUMPER [facility] Note The pap test is a screening technique, not a diagnostic procedure. It is used primarily to screen for squamous cancers and precursor lesions. Published studies have shown that it is subject to both false negative and false positive results. The pap test should not be used as the sole means to diagnose or exclude pre-malignant and malignant lesions. 10/05/2020 10:49 AM HOGSHEAD DUMPER [facility] Other (Cervical) Non-Blood / Unknown 09/27/2020 1:55 PM HOGSHEAD DUMPER 09/27/2020 2:21 PM HOGSHEAD DUMPER Hailey Mallory DO PATHOLOGY/CYTOLOGY Final R esult [facility] [address] [place] [address], [place] * ACUTE HEPATITIS PANEL (07/01/2014 9:58 AM HOGSHEAD DUMPER) HEPATITIS C ANTIBODY Non-Reactive Non-Reactive 07/01/2014 5:55 PM HOGSHEAD DUMPER [facility] IGM ANTI HAV Non-Reactive Non-Reactive 07/01/20 14 5:55 PM HOGSHEAD DUMPER [facility] HBSAG Nonreactive Nonreactive 07/01/2014 5:55 PM HOGSHEAD DUMPER [facility] IGM ANTI HBC Non-Reactive Non-Reactive 07/01/20 14 5:55 PM HOGSHEAD DUMPER [facility] Blood specimen (specimen) BLOOD SPECIMEN / Unknown Venipuncture / Unknown 07/01/2014 9:58 AM HOGSHEAD DUMPER 07/01/2014 9:58 AM HOGSHEAD DUMPER Narrative [facility] - 07/01/2014 5:55 PM HOGSHEAD DUMPER Anti-HBc IgM not detected. Does not exclude the possibility of exposure to or infection with HBV. us Hailey Mallory DO SEND OUTS Final Resu lt [facility] [address] [place] [address], [place] from Last 3 Months or Most Recently Relevant to Health Maintenance Insurance [facility] NON-ID-[facility] [address] [place] [id number] [place] Member Subscriber Plan / Payer (Ef fective 2020-Present) Name:Buffy Cortez Member ID:[id number] Relation to Subscriber:Employee Name:[employer] Subscriber ID:[id number] Date of :1998 (Home) Address: [address] [place] [id number] Payer ID:Not on file Group ID:Not on file Type:Not on file Address: [address] [place] [address] [address] [place] [address] [place] [address] [place] [address] [place] [address] [place] [address] Advance Directives * Full Code (Latest Code Status on File) Date Activated Date Inactivated Comments 04/21/2020 9:33 AM 04/25/2020 2:58 PM Question Answer Comments Code Status Discussion: Per Existing Order Care Teams Weight Loss Physician Relationship Specialty Start Date End Date Hailey Mallory DO [address] [place] [address] PCP - General Family Practice 07/12/16 Héctor Mason MD [address] [facility] [address] [place] [address] Rheumatology Rheumatology 06/24/14
[2024-09-17] MEDS: SODIUM CHLORIDE 0.9 % (FLUSH) 10 ML SYRINGE IVF (10:30)
[2024-09-17] MEDS: 0.9 % SODIUM CHLORIDE 500 ML 500 ML 100 ML IV (10:30)
--- NOTE | 2024-09-17 10:48 | W.PM.H&PU ---
History & Physical Update History & Physical Update H&P Reviewed and patient assessed: No changes noted
[2024-09-17] MEDS: MIDAZOLAM HCL 1 MG/ML inj IVP (11:04)
[2024-09-17] MEDS: fentaNYL 100 MCG/2 ML inj IVP (11:04)
--- NOTE | 2024-09-17 11:10 | SUR.PREOP ---
TIME?OUT:?1103 PT/RN/MDA?VERIFICATION?OF?SURGICAL?SITE,?PROCEDURE,?AND?CONSENT OBTAINED?PRIOR?TO?INVASIVE?PROCEDURE.
--- NOTE | 2024-09-17 11:11 | P.NB_ITS ---
Nerve Block Nerve Block Time Seen by Provider: 11:10 Date Seen: 09/17/24 Type of block requested by surgeon for post-operative analgesia: supraclavicular Side: right Time out performed: Yes Verification of patient name: Yes Verification of date of : Yes Site marking: site marked Name of person performing procedure: Harrison Continuous monitoring Was continuous monitoring of O2 sat, B/P, plastic sheets supervisor, recorded every 15 minutes?: Yes Procedure Checklist: sterile prep, needles and gloves Ultrasound guided. Images saved: Yes Medications given in 5ml increments after negative aspiration: Ropivicaine %: 0.5 mL: 20 Needle gauge: 22 Precedex (mcg): 25 Patient tolerated procedure well: Yes Block Charges Block Charge (with Pro Fee): Brachial Plexus Use of Ultrasound Machine for Block: Yes- US Guidance/pain block
--- NOTE | 2024-09-17 11:12 | P.ANES_ITS ---
Anesthesia Charges Start Date/Time Anesthesia Start Date: 09/17/24 Anesthesia Start Time: 11:40 Stop Date/Time Anesthesia Stop Date: 09/17/24 Anesthesia Stop Time: 13:45 Coding CPT Codes CPT Codes: ANESTH UPPER ARM SURGERY - 55837 ([id number]) P3 - PATIENT W/SEVERE SYS DISEASE, QK - BUSINESS COMMUNICATIONS INSTRUCTOR 2-4 CNCRNT ANES PROC, QX - MOVIE PROJECTIONIST SVC W/ MD MED DIRECTION
--- NOTE | 2024-09-17 11:12 | W.ANESCHARGE ---
Anesthesia Charges Start Date/Time Anesthesia Start Date: 09/17/24 Anesthesia Start Time: 11:40 Stop Date/Time Anesthesia Stop Date: 09/17/24 Anesthesia Stop Time: 13:45 Coding CPT Codes CPT Codes: ANESTH UPPER ARM SURGERY - 60420 ([id number]) P3 - PATIENT W/SEVERE SYS DISEASE, QK - HANDER IN 2-4 CNCRNT ANES PROC, QX - ROAD MACHINERY INSPECTOR SVC W/ MD MED DIRECTION
[2024-09-17] MEDS: CEFAZOLIN 2 GM in 0.9 % SODIUM CHLORIDE Mini-bag 100 ML IVPB (11:45)
--- NOTE | 2024-09-17 12:00 | CRLHL7_ITS ---
For Patients: As a result of the Cures Act, medical imaging exams and procedure reports are released immediately into your electronic medical record. You may view this report before your referring provider. If you have questions, please contact your health care provider. INDICATION: Right radial head fracture ORIF TECHNIQUE: C-arm fluoroscopy for radial head fracture ORIF. Three C-arm spot images were obtained. Fluoroscopy time was 21.5 seconds. COMPARISON: None. FINDINGS: C-arm fluoroscopy for right radial head fracture ORIF. Fracture fragments, plate and screws in good position. IMPRESSION: C-arm fluoroscopy for right radial head fracture ORIF. Dictated by Migue Costa MD @ 09/18/2024 8:16:05 AM (Electronically Signed)
--- NOTE | 2024-09-17 13:49 | P.ANES_ITS ---
Anesthesia Charges Start Date/Time Anesthesia Start Date: 09/17/24 Anesthesia Start Time: 11:40 Stop Date/Time Anesthesia Stop Date: 09/17/24 Anesthesia Stop Time: 13:45 Coding CPT Codes CPT Codes: ANESTH UPPER ARM SURGERY - 83740 ([id number]) QK - DIRECTOR OF STAFF DEVELOPMENT 2-4 CNCRNT ANES PROC, QX - DRIVE WORKER SVC W/ MD MED DIRECTION, P3 - PATIENT W/SEVERE SYS DISEASE
--- NOTE | 2024-09-17 13:49 | W.ANESCHARGE ---
Anesthesia Charges Start Date/Time Anesthesia Start Date: 09/17/24 Anesthesia Start Time: 11:40 Stop Date/Time Anesthesia Stop Date: 09/17/24 Anesthesia Stop Time: 13:45 Coding CPT Codes CPT Codes: ANESTH UPPER ARM SURGERY - 33445 ([id number]) QK - ROUTER MACHINE OPERATOR 2-4 CNCRNT ANES PROC, QX - ARMHOLE SEWER SVC W/ MD MED DIRECTION, P3 - PATIENT W/SEVERE SYS DISEASE
--- NOTE | 2024-09-17 15:14 | P.ORPRC_ITS ---
Procedure Note Date of procedure: 09/17/24 Procedure: PREOPERATIVE DIAGNOSES: 1. Right radial neck fracture, displaced, impacted, acute, closed POSTOPERATIVE DIAGNOSES: 1. Right radial neck fracture, displaced, impacted, acute, closed NAME OF OPERATION: 1. Right radial head open reduction with internal fixation 2. 28184 - intraoperative fluoroscopy up to 1 hour. SURGEON: Juan Rivera MD TIMBER HARVESTER OPERATOR: CARIN Leon - Of note, an assistant prosecuting attorney was critical for this case to aide in patient positioning, limb manipulation, tissue retraction, closure, and splinting. ANESTHESIA: General anesthetic plus regional block IMPLANTS: Acumed silver colored small radius locking radial head plate and multiple screws (locking & a single nonlocking). TOURNIQUET: 80 minutes at 230 torr INDICATIONS: The patient is a pleasant, 63-year-old female who sustained a right radial neck impacted fracture after a fall from a standing height. They had difficulty with use of the extremity and deformity as well as a mechanical block to range of motion. Workup included xrays which revealed an unstable, displaced fracture. Given these findings, surgery was recommended to stablize the fracture. FINDINGS: Closed, radial neck fracture with significant impaction/angulation at the fracture. The fracture line did extend all the way across the radial neck. Initially was thought that maybe 1 cortex was intact, this was not the case. Once the radial head was disimpacted, it was found that it was even more unstable, but again an extra-articular fracture. PROCEDURE: Following a thorough discussion of risks, benefits, and alternatives, consent was obtained and the operative extremity was marked. The patient was brought to the operating room and placed supine on the operating table. Induction of anesthesia was achieved. Appropriate time out was performed identifying proper patient, site and procedure. 2 g IV Ancef was administered within 1 hour of incision preoperatively. The right upper extremity was prepped and draped in the appropriate sterile fashion using ChloraPrep. The limb was exsanguinated and the tourniquet inflated. A oblique/longitudinal incision was made overlying lateral aspect of the right elbow. Sharp incision through skin and subcutaneous tissue allowed identification of the common extensor origin region. Extensor split was utilized for the deep dissection. This was in line between the Toni's tubercle and lateral humeral epicondyle. This was sharply divided with the forearm in a pronated state to help move the PIN away from the operative field. The annular ligament was incised anterior to the lateral ulnar collateral ligament. The lateral ulnar collateral ligament was protected. After the arthrotomy, a hemarthrosis was immediately encountered and evacuated. The fracture piece was found to be significantly impacted and somewhat wedged. This was blocking full pronation/supination. This was disimpacted and stabilized with Acumed plate and multiple screws (single nonlocking and multiple locking screws) and confirmed with C-arm fluoroscopic imaging to be in an improved position. Range of motion was also restored passively. Therefore, the elbow was thoroughly irrigated with normal saline, closure performed with 2-0 stratafix for the annular ligament/radial collateral ligament. 2-0 Vicryl for the extensor fascia reapproximation and subcutaneous closure. 4-0 Monocryl for subcuticular closure followed by a long-arm splint after dressings applied and tourniquet deflated. Patient was woken from anesthesia and transferred the PACU in stable condition. PLAN: 1. Elevate operative extremity. 2. Ice, acetominphen or ibuprofen PRN. 3. Oxycodone for pain as needed. 4. Follow up with PA visit 7-10 days for wound check and splint removal. Gentle range of motion with caution for the patient to avoid load bearing activities until 6 week visit.
== END 2024-09-17 15:40 | disposition home or self-care (01) ==
LOC: OR 10:01
PROVIDERS: PCP Family Medicine; Visit Provider Orthopaedic Surgery Sports Medicine
PROC: (CPT 24665; principal; 2024-09-17 12:00)
DX: S52.131A Displaced fracture of neck of right radius, initial encounter for closed fracture (principal); G89.18 Other acute postprocedural pain
CPT/HCPCS: 24665; 01740; 64415; 73070; 76000; 76942; C1713; J0690; J2250; J2704; J2795; J3010; J3490; J7030

== ENCOUNTER 2024-10-17 09:15 | Outpatient (RCR) | payer BC, SELFPAY ==
--- NOTE | 2024-10-01 15:43 | OT.OPOE ---
OT Outpatient Ortho Eval OT Outpatient Ortho Eval* Start: 09/30/24 17:37 Freq: Status: Active Protocol: Document 10/01/24 15:15 AMB (Rec: 10/01/24 15:34 AMB [id number]) E-signed By Michelle Munoz, OTR/L, CLT, CORE DRILLER HELPER OT OP Ortho Eval Details Complexity Complexity Low Insurance Information Insurance Information [employer] Insurance Information Comments [place] [address] Outpatient History/Precautions Current Condition/Medical Diagnosis Referring Provider Orion Bliss PA-C Medical Diagnoses Z98.89 ORIF RUE radial head Treatment Diagnosis Weakness RUE R53.1 Stiffness RUE [place] M25.621 Date of Onset DOI: 09/04/24, DOS: 09/17/24 Precautions Lifting Restrictions,Range of Motion Medical Conditions Depression,Heart Condition, Respiratory,Arthritis Other Conditions PMH includes asthma, AAA repair, RA Meds: Methotrexate, Orencia, Zoloft, Folic Acid, baby aspirin Medical/Functional History Medical History Reviewed Yes Prior Level of Function/Mobility Prior to injury, pt had full, pain-free use of her RUE Social History Employment Status Retired Hobbies Crafting with her granddaughter, traveling to [place] Ortho Subjective Subjective Subjective Pt states that on 09/04/24 she was taking down her [employer] decor when she missed a step on her ladder and fell on her right elbow and knee. Pt was seen in ER and dx with elbow fx. She underwent ORIF of RUE radial head with Dr Rivera on 09/17/24. Pt feels she is doing quite well, minimal pain , no problems sleeping. However, due to weakness and limited AROM she is finding it very difficult to comb her hair, brush her teeth, put a shirt over her head, and do any lifting / cooking in the kitchen. Pt state her average pain is 5/10, but she does not really have any pain at rest, just with activity. Pt has been trying to elevate her arm and move her fingers. Goniometric Comments Goniometric Comments Goniometric Comments 10/01/24 AROM of BUE is WNL throughout with the exception of the RUE elbow, forearm, and wrist. AROM of the RUE elbow , wrist, and forearm are as follows: Elbow: Flex/Ext: 95/-35 Forearm: Pro/Sup: 50/35 Wrist: Flex/ext: 50/50 UD/RD: 20/12 Pt is able to complete a full fist and full opposition. OT Objective Data Skin/Wounds/Edema Comments 10/01/24 Incisional area is well healed, surgical glue is sloughing off. No opened areas , no drainage, no s/s of infection. Pt denies any paresthesia. OT Problems Problems Problems Decreased Strength,Decreased Range of Motion,Decreased Dexterity,Pain,Lifting, Gripping,Pinching Other Problems Writing,Opening Containers, Dressing,Computer,Fasteners Patient Potential Good Assessment Assessment Assessment Pt was referred to OT following RUE radial head fx with ORIF on 09/17/24. Pt demonstrates pain, weakness, and limited AROM in the RUE elbow, forearm, and wrist. These restrictions limit pt's ability to use her RUE ( dominant) to comb her hair, brush her teeth, boubacar a shirt over her head and hold the steering weel to drive the car . Pt will benefit from skilled OT intervention to address limitations and restore full, pain-free use of her RUE. Occupational Therapy Treatment Plan - OP Potential Rehabilitation Potential Good Set Goals Goals Set with Patient Yes Goals Goals 1. Pt will be independent and compliant with HEP in order to resume full, pain-free use of the involved UE. 3 weeks 2. Pt will demonstrate full, pain-free AROM of the involved UE in order to improve ability to reach above her head to fix her hair and brush her teeth, as well as to lift and boubacar shirt overhead. 6 weeks 3. Pt will demonstrate pain- free greens planter and pinch strength comparable to the uninvolved side in order to improve functional grasp, hold, reach, and lifting ability needed to complete self-care, leisure tasks, and drive a car. 8 weeks. Target Date 11/29/24 Treatment Plan Treatment Plan Evaluation,Edema Control,Joint Mobilization,Manual Therapy, Ultrasound,Wound Care/Scar Management,Therapeutic Exercise,Therapeutic Activities,Self Care/Home Management,Education Expected Frequency 1-2x Week Expected Duration 6-8 Weeks Home Program Home Program Home Program Initiated Home Program Specifics Provided training and practice in HEP for AROM of the RUE elbow, forearm, wrist and hand . Following demo, pt is able to complete exs with minimal cues. Pt was provided with written instructions for use at home as well. Pt was also instructed in scar tissue mobilization in clinic. She was comfortable with this following demo and trial. She was given written inst for this as well. Certification Certification Statement I Certify That: Therapy Services Provided, Therapy Plan Established, Therapy Plan Reviewed Certification Information Clinic ID # [id number] Initial Certification Date 10/01/24 Recertification Due Date 12/30/24 Provider Signature Required Yes Provider Signature Shows Agreement With POC & Medical Necessity Physician NPI Number Write NPI# Here Physician Comment/Change Comment or Changes Physician Signature & Date Requested Please Sign/Date Here
== END 2024-10-17 11:50 | disposition home or self-care (01) ==
PROVIDERS: PCP Family Medicine; Visit Provider Physician Assistant Surgical
DX: Z98.890 Other specified postprocedural states (principal); R53.1 Weakness; M25.621 Stiffness of right elbow, not elsewhere classified; Z51.89 Encounter for other specified aftercare
CPT/HCPCS: 97110; 97140; 97165; X5282